=== PATIENT | male | born 1960 | race Caucasian/White ===

== ENCOUNTER 2019-04-03 16:59 | Emergency (ER) | payer MEDICARE, OTHER ==
[~2019-04-03] VITALS: Ht 170.2 cm; Wt 81.6 kg
--- NOTE | 2019-04-03 16:52 | NUR ---
ED Nurse Note: BIB by JESUS from [facility] d/t seizure x2 minutes witnessed by employees. Patient is now aaox4, verbally responsive. Placed in dental laboratory worker. Safety and seizure precautions in place.
--- NOTE | 2019-04-03 16:59 | NUR ---
ED Nurse Note: Noted right hand in cast. Pt states he fractured his right arm at the skilled nursing.
--- NOTE | 2019-04-03 17:10 | Emergency Room Report ---
History of Present Illness General Chief Complaint: Seizure Source: Patient, EMS Present Illness HPI 58-year-old male history of seizures presents with seizure prior to arrival, patient does not remember what medications he supposed to take, patient states he is provided with the medication he had a seizure prior to arrival lasting less than a minute, he was confused he could not remember the incident, aggravated by not taking medications alleviated by taking medication severity is severe, characterization is tonic-clonic whole body. Patient is back to baseline he feels completely normal denies any chest pain shortness of breath no abdominal pain. Allergies: Coded Allergies: DIVALPROEX SODIUM (Verified Allergy, Unknown, 04/03/19) HALOPERIDOL (Verified Allergy, Unknown, 04/03/19) Uncoded Allergies: PENICILLIN (Allergy, Unknown, 04/03/19) Patient History Past Medical History: see triage record Reviewed Nursing Documentation: PMH: Agreed; PSxH: Agreed Review of Systems All Other Systems: negative except mentioned in HPI Physical Exam Vital Signs Date Time Temp Pulse Resp B/P (MAP) Pulse Ox O2 Delivery O2 Flow Rate FiO2 04/03/19 16:50 98.6 110 18 134/96 (109) 98 Room Air Sp02 EP Interpretation: reviewed, normal General Appearance: well appearing, no apparent distress, alert Head: normocephalic, atraumatic Eyes: bilateral eye PERRL, bilateral eye EOMI ENT: uvula midline, moist mucus membranes Neck: supple, thyroid normal, supple/symm/no masses Respiratory: lungs clear, no respiratory distress, no retraction, no accessory muscle use Cardiovascular #1: normal peripheral pulses, regular rate, rhythm, no edema, no gallop, no murmur Gastrointestinal: non tender, soft, no guarding, no rebound Musculoskeletal: normal inspection Neurologic: alert, oriented x3 Psychiatric: mood/affect normal Skin: no rash, warm/dry Medical Decision Making Diagnostic Impression: Primary Impression: Seizure disorder ER Course 58-year-old male history of seizure disorder, he has been off his medications he cannot remember what seizure medications he supposed to take he denies any chest pain shortness of breath, labs show changes in electrolytes his white blood cell count is elevated most likely secondary to acute stress reaction, doubt infection, CT brain negative, no masses, low suspicion for intracranial hemorrhage, patient is back to baseline, patient was given some Ativan and loaded with Keppra will provide patient with Keppra as an outpatient, patient was found to have marijuana on drug urine screen, which may have exacerbated his epilepsy. Will start patient on Keppra as an outpatient for his epilepsy. Laboratory Tests Test 04/03/19 17:11 04/03/19 17:13 White Blood Count 13.7 K/UL (4.8-10.8) H Red Blood Count 4.63 M/UL (4.70-6.10) L Hemoglobin 14.8 G/DL (14.2-18.0) Hematocrit 41.5 % (42.0-52.0) L Mean Corpuscular Volume 90 FL (80-99) Mean Corpuscular Hemoglobin 32.0 PG (27.0-31.0) H Mean Corpuscular Hemoglobin Concent 35.7 G/DL (32.0-36.0) Red Cell Distribution Width 10.8 % (11.6-14.8) L Platelet Count 302 K/UL (150-450) Mean Platelet Volume 4.8 FL (6.5-10.1) L Neutrophils (%) (Auto) 67.0 % (45.0-75.0) Lymphocytes (%) (Auto) 21.7 % (20.0-45.0) Monocytes (%) (Auto) 6.7 % (1.0-10.0) Eosinophils (%) (Auto) 3.2 % (0.0-3.0) H Basophils (%) (Auto) 1.3 % (0.0-2.0) Sodium Level 135 MMOL/L (136-145) L Potassium Level 4.1 MMOL/L (3.5-5.1) Chloride Level 100 MMOL/L (98-107) Carbon Dioxide Level 28 MMOL/L (21-32) Anion Gap 7 mmol/L (5-15) Blood Urea Nitrogen 16 mg/dL (7-18) Creatinine 1.3 MG/DL (0.55-1.30) Estimate Glomerular Filtration Rate 56.9 mL/min (>60) Glucose Level 112 MG/DL (74-106) H Calcium Level 8.8 MG/DL (8.5-10.1) Total Bilirubin 0.2 MG/DL (0.2-1.0) Aspartate Amino Transferase (AST) 28 U/L (15-37) Alanine Aminotransferase (ALT) 28 U/L (12-78) Alkaline Phosphatase 104 U/L (46-116) Troponin I 0.000 ng/mL (0.000-0.056) Total Protein 6.8 G/DL (6.4-8.2) Albumin 3.3 G/DL (3.4-5.0) L Globulin 3.5 g/dL Albumin/Globulin Ratio 0.9 (1.0-2.7) L Salicylates Level 3.1 ug/mL (2.8-20) Acetaminophen Level < 2 MCG/ML (10-30) L Valproic Acid Level < 3 MCG/ML (50-100) L Carbamazepine (Tegretol) Level < 0.5 ug/mL (4.0-12.0) L Phenobarbital Level < 1.0 ug/mL (15-40) L Serum Alcohol < 3 mg/dL Urine Color Pale yellow Urine Appearance Clear Urine pH 6.5 (4.5-8.0) Urine Specific [place] 1.005 (1.005-1.035) Urine Protein Negative (NEGATIVE) Urine Glucose (UA) Negative (NEGATIVE) Urine Ketones Negative (NEGATIVE) Urine Blood Negative (NEGATIVE) Urine Nitrite Negative (NEGATIVE) Urine Bilirubin Negative (NEGATIVE) Urine Urobilinogen Normal MG/DL (0.0-1.0) Urine Leukocyte Esterase Negative (NEGATIVE) Urine Opiates Screen Negative (NEGATIVE) Urine Barbiturates Screen Negative (NEGATIVE) Phencyclidine (PCP) Screen Negative (NEGATIVE) Urine Amphetamines Screen Negative (NEGATIVE) Urine Benzodiazepines Screen Negative (NEGATIVE) Urine Cocaine Screen Negative (NEGATIVE) Urine Marijuana (THC) Screen Positive (NEGATIVE) H EKG Diagnostic Results EKG Time: 16:57 EP Interpretation: NSR rate 81, QTc 453, no acute ST elevation normal axis Rhythm Strip Diag. Results Rhythm Strip Time: 19:17 EP Interpretation: yes Rate: 85 Rhythm: NSR, no PVC's, no ectopy Chest X-Ray Diagnostic Results Chest X-Ray Diagnostic Results : Chest X-Ray Ordered: Yes # of Views/Limited/Complete: 1 View Indication: Other - Seizure EP Interpretation: Yes Interpretation: no consolidation, no effusion, no pneumothorax, no acute cardiopulmonary disease Impression: No acute disease Electronically Signed by: Gallo Villar MD CT/MRI/US Diagnostic Results CT/MRI/US Diagnostic Results : Impression EXAM: CT Head Without Intravenous Contrast CLINICAL HISTORY: SZ TECHNIQUE: Axial computed tomography images of the head/brain without intravenous contrast. CTDI is 70.38 mGy and DLP is 1403 mGy-cm. One or more of the following dose reduction techniques were used: automated exposure control, adjustment of the mA and/or kV according to patient size, use of iterative reconstruction technique. COMPARISON: No relevant prior studies available. FINDINGS: Brain: No hemorrhage. No edema. Ventricles: No ventriculomegaly. Bones/joints: No acute fracture. Soft tissues: Unremarkable. Sinuses: No acute sinusitis. Mastoid air cells: No mastoid effusion. IMPRESSION: No acute intracranial process. Last Vital Signs Date Time Temp Pulse Resp B/P (MAP) Pulse Ox O2 Delivery O2 Flow Rate FiO2 04/03/19 16:50 98.6 110 18 134/96 (109) 98 Room Air Disposition: XFER SNF Condition: Stable Scripts Levetiracetam (KEPPRA) 500 Mg Tablet 500 MG ORAL EVERY 12 HOURS, #60 TAB 0 Refills Prov: Gallo Villar MD 04/03/19 Referrals: [facility] Patient Instructions: Seizure, Adult, [id number] Additional Instructions: The patient was provided with discharge instructions, notified to follow-up with a primary care doctor and or specialist in the next 24-48 hours, and to return to the ED if they have worsening of their symptoms. Please note that this report is being documented using DRAGON technology. This can lead to erroneous entry secondary to incorrect interpretation by the dictating instrument. Gallo Villar MD Apr 03, 2019 17:10
[2019-04-03 17:16] VITALS: BP 113/63
[2019-04-03 17:27] LABS: BASOPHILS % (AUTO) 1.3 % (0.0-2.0); EOSINOPHILS % (AUTO) 3.2 % (0.0-3.0); HEMATOCRIT 41.5 % (42.0-52.0); HEMOGLOBIN 14.8 G/DL (14.2-18.0); LYMPHOCYTES % (AUTO) 21.7 % (20.0-45.0); MEAN CORPUSCULAR VOLUME 90 FL (80-99); MONOCYTES % (AUTO) 6.7 % (1.0-10.0); PLATELET COUNT 302 K/UL (150-450); RED BLOOD COUNT 4.63 M/UL (4.70-6.10); RED CELL DISTRIBUTION WIDTH 10.8 % (11.6-14.8); WHITE BLOOD COUNT 13.7 K/UL (4.8-10.8)
[2019-04-03 17:45] LABS: ANION GAP 7 mmol/L (5-15); BLOOD UREA NITROGEN 16 mg/dL (7-18); CALCIUM 8.8 MG/DL (8.5-10.1); CARBON DIOXIDE 28 MMOL/L (21-32); CHLORIDE 100 MMOL/L (98-107); CREATININE 1.3 MG/DL (0.55-1.30); POTASSIUM 4.1 MMOL/L (3.5-5.1); SODIUM 135 MMOL/L (136-145)
[2019-04-03 17:51] LABS: ALANINE AMINOTRANSFERASE 28 U/L (12-78); ALBUMIN 3.3 G/DL (3.4-5.0); ALBUMIN/GLOBULIN RATIO 0.9 (1.0-2.7); ALKALINE PHOSPHATASE 104 U/L (46-116); ASPARTATE AMINO TRANSFERASE 28 U/L (15-37); BILIRUBIN,TOTAL 0.2 MG/DL (0.2-1.0)
[2019-04-03 18:00] LABS: APPEARANCE,URINE CLEAR; BILIRUBIN, URINE NEGATIVE (NEGATIVE); COLOR,URINE PALE YELLOW; GLUCOSE, URINE (UA) NEGATIVE (NEGATIVE); KETONES,URINE NEGATIVE (NEGATIVE); LEUKOCYTE ESTERASE ,URINE NEGATIVE (NEGATIVE); NITRITE,URINE NEGATIVE (NEGATIVE); PH,URINE 6.5 (4.5-8.0); PROTEIN,URINE NEGATIVE (NEGATIVE); UROBILINOGEN,URINE NORMAL MG/DL (0.0-1.0)
--- NOTE | 2019-04-03 18:00 | NUR ---
ED Nurse Note: Spoke with Beverly at [facility], regarding med list to be faxed.
--- NOTE | 2019-04-03 18:01 | NUR ---
ED Nurse Note: Pt was taken down for CT of the head in stable condition
--- NOTE | 2019-04-03 18:14 | NUR ---
ED Nurse Note: Pt back from CT in stable condition
[2019-04-03] MEDS ORDERED: levETIRAcetam 1,000mg/NS100ml 100 ML IVPB ONE (18:30)
[2019-04-03] MEDS ORDERED: LORazepam Inj 2mg/ml 1ml IV ONE (18:30)
--- NOTE | 2019-04-03 18:31 | NUR ---
ED Nurse Note: spoke with Zunilda nurse, she reports that pt has hx of seizure but he is not on any medication.
[2019-04-03] MEDS ORDERED: BENZTROPINE ME0.5 MG PO (18:33)
[2019-04-03] MEDS ORDERED: CRANBERRY450 M5 PO (18:33)
[2019-04-03 18:45] VITALS: BP 131/60
[2019-04-03] MEDS ORDERED: KEPPRA500 M4 ORAL (19:19)
--- NOTE | 2019-04-03 20:43 | NUR ---
ED Nurse Note: CALLED [facility] TO NOTIFY PT TRANSFERRING BACK TO THE FACILITY WITH DC INSTRUCTION AND PRESCRIPTION. Addendum: 04/03/19 at 2123 by JACOB ED Nurse Note: CALLED [facility] and spoke with Ana TO NOTIFY PT TRANSFERRING BACK TO THE FACILITY WITH DC INSTRUCTION AND PRESCRIPTION.
--- NOTE | 2019-04-03 21:23 | NUR ---
ED Nurse Note: ambulance at the bedside for xfr back to facility. report given to EMS staf,, all belongings endorsed to ems. vss. iv d/c and id band removed, summary of care provided w/ prescription.
[2019-04-03 21:26] VITALS: BP 115/64
--- NOTE | 2019-04-05 08:21 | Diagnostic Imaging Report ---
EXAM: CT Head Without Intravenous Contrast CLINICAL HISTORY: SZ TECHNIQUE: Axial computed tomography images of the head/brain without intravenous contrast. CTDI is 70.38 mGy and DLP is 1403 mGy-cm. One or more of the following dose reduction techniques were used: automated exposure control, adjustment of the mA and/or kV according to patient size, use of iterative reconstruction technique. COMPARISON: No relevant prior studies available. FINDINGS: Brain: No hemorrhage. No edema. Ventricles: No ventriculomegaly. Bones/joints: No acute fracture. Soft tissues: Unremarkable. Sinuses: No acute sinusitis. Mastoid air cells: No mastoid effusion. IMPRESSION: No acute intracranial process.
--- NOTE | 2019-04-05 08:25 | Diagnostic Imaging Report ---
EXAM: XR Chest, 1 View CLINICAL HISTORY: pain TECHNIQUE: Frontal view of the chest. COMPARISON: No relevant prior studies available. FINDINGS: Lungs: No consolidation. Pleural space: Unremarkable. No pneumothorax. Heart: Unremarkable. No cardiomegaly. Mediastinum: Unremarkable. Bones/joints: No acute fracture. IMPRESSION: No acute cardiopulmonary disease.
== END 2019-04-03 21:32 ==
LOC: EDBD 16:59 → EMR 19:31
DX: G40.909 Epilepsy, unspecified, not intractable, without status epilepticus (principal); Z88.0 Allergy status to penicillin; Z88.8 Allergy status to other drugs, medicaments and biological substances
CPT/HCPCS: 36415; 70450; 71045; 80053; 80156; 80164; 80184; 80307; 81003; 82962; 84484; 85025; 93005; 96374; 99284; G0480; J1953; 80329

== ENCOUNTER 2019-06-17 18:21 | Inpatient (IN) | payer MEDICARE, OTHER ==
[~2019-06-17] VITALS: Ht 170.2 cm; Wt 76.3 kg
[~2019-06-17 18:21] MED LIST: BENZTROPINE ME0.5 MG PO; CRANBERRY450 M5 PO; KEPPRA500 M4 ORAL
--- NOTE | 2019-06-17 18:40 | Emergency Room Report ---
History of Present Illness General Chief Complaint: Upper Extremity Injury Source: Patient, Medical Record Present Illness HPI Disclaimer: Please note that this report is being documented using DRAGON technology. This can lead to erroneous entry secondary to incorrect interpretation by the dictating instrument. HPI: 58-year-old male with a history of COPD, hypertension, PTSD presents from his assisted living facility for evaluation of left hand pain and swelling. The patient states he punched a wall out of anger 2 days ago. He is right-hand dominant but punched with his left hand. Noted a abrasion between the third and fourth knuckles which stop bleeding quickly. Over the next 2 days he noted progressive swelling over the dorsum of the hand but denies any restriction in range of motion of the digits. Denies any numbness or tingling. Denies pain unless palpated. Denies significant wrist injury or pain. No other injuries reported. Otherwise in his usual state of health. PMH: Hypertension, COPD, PTSD PSH: Chart reviewed Allergies: Multiple listed including clonazepam, erythromycin Social Hx: Smoker Allergies: Coded Allergies: Little (Verified Allergy, Unknown, 06/17/19) CLONAZEPAM (Verified Allergy, Unknown, 06/17/19) DIVALPROEX SODIUM (Verified Allergy, Unknown, 04/03/19) ERYTHROMYCIN BASE (Verified Allergy, Unknown, 06/17/19) FISH CONTAINING PRODUCTS (Verified Allergy, Unknown, 06/17/19) HALOPERIDOL (Verified Allergy, Unknown, 04/03/19) PEANUT (Verified Allergy, Unknown, 06/17/19) PENICILLINS (Verified Allergy, Unknown, 06/17/19) RISPERIDONE (Verified Allergy, Unknown, 06/17/19) Nursing Documentation-PMH Past Medical History: No History, Except For Hx Seizures: Yes Review of Systems All Other Systems: negative except mentioned in HPI Physical Exam Vital Signs Date Time Temp Pulse Resp B/P (MAP) Pulse Ox O2 Delivery O2 Flow Rate FiO2 06/17/19 18:24 98.1 82 22 134/82 (99) 100 Room Air General: Awake and alert, no acute distress HEENT: NC/AT. EOMI. Cardiovascular: RRR. S1 and S2 normal. No murmur appreciated Resp: Normal work of breathing. No cough, wheezing or crackles appreciated Abdomen: Abdomen is soft, nondistended. Nontender Skin: Abrasion between the third and fourth knuckle on the left hand. Moderate edema and erythema. No purulent drainage. No bleeding. MSK: Normal tone and bulk. Moving all extremities. Tenderness palpation over the dorsum of the left hand over the third, fourth and fifth metacarpals. No obvious deformity but there is moderate edema and erythema. Able to flex and extend the digits of the left hand. No tenderness in the anatomic snuffbox. Neuro: Awake and alert. Mentating appropriately. Medical Decision Making Diagnostic Impression: Primary Impression: Cellulitis ER Course 58-year-old male presents for evaluation of left hand pain and swelling after punching a wall 2 days ago. Differential includes but is not limited to fracture, cellulitis, deep space infection, contusion. Will obtain x-rays of the hand and wrist as well as labs with inflammatory markers and blood cultures for possible infection. Laboratory Tests Test 06/17/19 18:45 White Blood Count 9.8 K/UL (4.8-10.8) Red Blood Count 4.78 M/UL (4.70-6.10) Hemoglobin 15.3 G/DL (14.2-18.0) Hematocrit 42.2 % (42.0-52.0) Mean Corpuscular Volume 88 FL (80-99) Mean Corpuscular Hemoglobin 31.9 PG (27.0-31.0) H Mean Corpuscular Hemoglobin Concent 36.1 G/DL (32.0-36.0) H Red Cell Distribution Width 10.4 % (11.6-14.8) L Platelet Count 376 K/UL (150-450) Mean Platelet Volume 4.4 FL (6.5-10.1) L Neutrophils (%) (Auto) 68.9 % (45.0-75.0) Lymphocytes (%) (Auto) 20.3 % (20.0-45.0) Monocytes (%) (Auto) 6.2 % (1.0-10.0) Eosinophils (%) (Auto) 3.5 % (0.0-3.0) H Basophils (%) (Auto) 1.1 % (0.0-2.0) Erythrocyte Sedimentation Rate 32 MM/HR (0-20) H Urine Color Pale yellow Urine Appearance Clear Urine pH 8 (4.5-8.0) Urine Specific [place] 1.015 (1.005-1.035) Urine Protein Negative (NEGATIVE) Urine Glucose (UA) Negative (NEGATIVE) Urine Ketones Negative (NEGATIVE) Urine Blood Negative (NEGATIVE) Urine Nitrite Negative (NEGATIVE) Urine Bilirubin Negative (NEGATIVE) Urine Urobilinogen Normal MG/DL (0.0-1.0) Urine Leukocyte Esterase Negative (NEGATIVE) Sodium Level 135 MMOL/L (136-145) L Potassium Level 4.5 MMOL/L (3.5-5.1) Chloride Level 96 MMOL/L (98-107) L Carbon Dioxide Level 28 MMOL/L (21-32) Anion Gap 11 mmol/L (5-15) Blood Urea Nitrogen 11 mg/dL (7-18) Creatinine 0.8 MG/DL (0.55-1.30) Estimate Glomerular Filtration Rate > 60 mL/min (>60) Glucose Level 84 MG/DL (74-106) Calcium Level 9.5 MG/DL (8.5-10.1) Total Bilirubin 0.2 MG/DL (0.2-1.0) Aspartate Amino Transferase (AST) 26 U/L (15-37) Alanine Aminotransferase (ALT) 37 U/L (12-78) Alkaline Phosphatase 109 U/L (46-116) C-Reactive Protein, Quantitative 3.5 mg/dL (0.00-0.90) H Total Protein 7.3 G/DL (6.4-8.2) Albumin 3.8 G/DL (3.4-5.0) Globulin 3.5 g/dL Albumin/Globulin Ratio 1.1 (1.0-2.7) Other X-Ray Diagnostic Results Other X-Ray Diagnostic Results #1: X-Ray ordered: Left hand # of Views/Limited Vs Complete: Complete Indication: Swelling EP Interpretation: Yes Interpretation: no dislocation, no fractures, other - Soft tissue swelling without gas Impression: Other - Soft tissue swelling. No subcutaneous gas Electronically Signed by: Electronically signed by Dr. Nato Amaral Other X-Ray Diagnostic Results #2: X-Ray ordered: Left wrist # of Views/Limited Vs Complete: Complete Indication: Swelling EP Interpretation: Yes Interpretation: no dislocation, no soft tissue swelling, no fractures Impression: No acute disease Electronically Signed by: Electronically signed by Dr. Nato Amaral Last Vital Signs Date Time Temp Pulse Resp B/P (MAP) Pulse Ox O2 Delivery O2 Flow Rate FiO2 10/24/19 18:24 98.1 82 22 134/82 (99) 100 Room Air Reevaluation Impression No evidence of fracture on x-rays. The patient likely is a cellulitis from the skin abrasion sustained while punching the wall. He was treated with antibiotics. He will be admitted to the surgical floor for continued IV antibiotics. Admission labs have been ordered and returned largely within normal limits aside from elevations in the inflammatory markers. No significant white count. Admitted in stable condition. Disposition: ADMITTED INPATIENT Condition: Serious Nato Amaral MD Jun 17, 2019 18:40
--- NOTE | 2019-06-17 18:45 | NUR ---
ED Nurse Note: Brought by paramedics from [facility] due to swelling on left hand for 1 day. per SNF staff, pt punched wall about 1 week ago. Pt aox4, no acute distress. swelling and redness noted on left hand.
--- NOTE | 2019-06-17 18:47 | NUR ---
ED Nurse Note: xray at bedside. blood collected and sent to lab
[2019-06-17 18:48] VITALS: BP 134/82
--- NOTE | 2019-06-17 19:18 | NUR ---
HAND-OFF: Report given to VILMA Buckner.
--- NOTE | 2019-06-17 19:25 | NUR ---
ED Nurse Note: Recieved repor to resume care, pt standing in llway, awake, alert and oriented x 4, pt here fo left hand swelling s/p hitting a wall 1 week ago, pt denies pain, no cp, no sob or labored beathing, has patent IV site in right ac area, intact and patent, will resume care as ordered and continue to closely monitor.
[2019-06-17 19:41] LABS: ANION GAP 11 mmol/L (5-15); BLOOD UREA NITROGEN 11 mg/dL (7-18); CALCIUM 9.5 MG/DL (8.5-10.1); CARBON DIOXIDE 28 MMOL/L (21-32); CHLORIDE 96 MMOL/L (98-107); CREATININE 0.8 MG/DL (0.55-1.30); POTASSIUM 4.5 MMOL/L (3.5-5.1); SODIUM 135 MMOL/L (136-145)
[2019-06-17 19:42] LABS: APPEARANCE,URINE CLEAR; BASOPHILS % (AUTO) 1.1 % (0.0-2.0); BILIRUBIN, URINE NEGATIVE (NEGATIVE); COLOR,URINE PALE YELLOW; EOSINOPHILS % (AUTO) 3.5 % (0.0-3.0); GLUCOSE, URINE (UA) NEGATIVE (NEGATIVE); HEMATOCRIT 42.2 % (42.0-52.0); HEMOGLOBIN 15.3 G/DL (14.2-18.0); KETONES,URINE NEGATIVE (NEGATIVE); LEUKOCYTE ESTERASE ,URINE NEGATIVE (NEGATIVE); LYMPHOCYTES % (AUTO) 20.3 % (20.0-45.0); MEAN CORPUSCULAR VOLUME 88 FL (80-99); MONOCYTES % (AUTO) 6.2 % (1.0-10.0); NEUTROPHILS % (AUTO) 68.9 % (45.0-75.0); NITRITE,URINE NEGATIVE (NEGATIVE); PH,URINE 8 (4.5-8.0); PLATELET COUNT 376 K/UL (150-450); PROTEIN,URINE NEGATIVE (NEGATIVE); RED BLOOD COUNT 4.78 M/UL (4.70-6.10); RED CELL DISTRIBUTION WIDTH 10.4 % (11.6-14.8); UROBILINOGEN,URINE NORMAL MG/DL (0.0-1.0); WHITE BLOOD COUNT 9.8 K/UL (4.8-10.8)
[2019-06-17 19:46] LABS: ALANINE AMINOTRANSFERASE 37 U/L (12-78); ALBUMIN 3.8 G/DL (3.4-5.0); ALBUMIN/GLOBULIN RATIO 1.1 (1.0-2.7); ALKALINE PHOSPHATASE 109 U/L (46-116); ASPARTATE AMINO TRANSFERASE 26 U/L (15-37); BILIRUBIN,TOTAL 0.2 MG/DL (0.2-1.0)
[2019-06-17] MEDS ORDERED: cefTRIAXone 1 GM in NS 55 ML IVPB ONE (20:00)
--- NOTE | 2019-06-17 21:15 | NUR ---
ED Nurse Note: Pt completed IV anibiotic, oleraed well, no s/s of adverse reaction noted, IV site intact and patent, pt given meal tray to eat, ate all, denies pain or any distress, pt has order for hospital admission, will continue to monitor and prepare for admit.
--- NOTE | 2019-06-17 21:57 | NUR ---
ED Nurse Note: REPORT GIVEN TO VILMA STODDARD. Addendum: 06/18/19 at 0348 by JACOB VILMA Manzo
[2019-06-17 22:00] VITALS: BP 134/80
--- NOTE | 2019-06-17 22:00 | NUR ---
NURSE NOTES: Pt admitted from ER with Dx of left hand cellulitis under Dr. Olmos in stable condition.Report received from VILMA Biswas. Americo snyder.Pt is awake,alert, verbal and ambulatory. No acute distress noted. Left hand has some inflammation, redness and bruising. Left hand X-ray was taken in ER. Pt oriented to the unit. Pt has belongings by bedside, pt refused to send valuables for safekeeping, pt verified belongings sheet and signed. Seizure precaution in place. Fall precaution in place.Bed locked low in position, side rails up , padded.Bed alarm on. Call light within reach. Dr. Olmos Will be called for admitting orders. Pt will be monitored.
[2019-06-17] MEDS ORDERED: FOLIC ACID1 M1 PO (22:10)
[2019-06-17] MEDS ORDERED: PHENYTOIN SODI100 MG ORAL (22:10)
[2019-06-17] MEDS ORDERED: PROTONIX20 MG ORAL (22:10)
[2019-06-17] MEDS ORDERED: NITRO0.4 SL ×2 (22:10→23:24)
[2019-06-17] MEDS ORDERED: OXCARBAZEPINE300 MG PO (22:10)
[2019-06-17] MEDS ORDERED: NEURONTIN300 MG ORAL (22:10)
[2019-06-17] MEDS ORDERED: IPRATROPIU0.2 MG/1 M HHN (22:10)
--- NOTE | 2019-06-17 22:50 | NUR ---
NURSE NOTES: Dr. Olmos called for admitting orders. Message left , awaiting call back.
--- NOTE | 2019-06-17 23:00 | NUR ---
NURSE NOTES: Dr. Olmos called back and ordered to resume all SNF orders.
[2019-06-17] MEDS ORDERED: DUONEB 0.5-3(2.53 ML HHN ×2 (23:24→23:34)
[2019-06-17] MEDS ORDERED: Albuterol/Ipratropium 3ml neb HHN PRN (23:45)
[2019-06-18] VITALS (7 sets, daily range): BP systolic 115–145; BP diastolic 67–91
--- NOTE | 2019-06-18 01:27 | NUR ---
NURSE NOTES: Pt is in bed, asleep. No acute distress noted. Vitas stable.
--- NOTE | 2019-06-18 07:20 | NUR ---
HAND-OFF: Report given to VILMA Saunders.Endorsed to place the SCDs on patient.
[2019-06-18] MEDS ORDERED: Milk of Magnesia 30ml Ud ORAL PRN (07:30)
[2019-06-18 07:41] LABS: BASOPHILS % (AUTO) 1.1 % (0.0-2.0); EOSINOPHILS % (AUTO) 5.9 % (0.0-3.0); HEMATOCRIT 46.3 % (42.0-52.0); HEMOGLOBIN 16.2 G/DL (14.2-18.0); LYMPHOCYTES % (AUTO) 23.7 % (20.0-45.0); MEAN CORPUSCULAR VOLUME 90 FL (80-99); MONOCYTES % (AUTO) 8.6 % (1.0-10.0); NEUTROPHILS % (AUTO) 60.8 % (45.0-75.0); PLATELET COUNT 388 K/UL (150-450); RED BLOOD COUNT 5.14 M/UL (4.70-6.10); RED CELL DISTRIBUTION WIDTH 10.9 % (11.6-14.8); WHITE BLOOD COUNT 9.1 K/UL (4.8-10.8)
[2019-06-18 08:08] LABS: ALANINE AMINOTRANSFERASE 35 U/L (12-78); ALBUMIN 3.6 G/DL (3.4-5.0); ALBUMIN/GLOBULIN RATIO 0.9 (1.0-2.7); ALKALINE PHOSPHATASE 110 U/L (46-116); ANION GAP 9 mmol/L (5-15); ASPARTATE AMINO TRANSFERASE 25 U/L (15-37); BILIRUBIN,TOTAL 0.3 MG/DL (0.2-1.0); BLOOD UREA NITROGEN 13 mg/dL (7-18); CALCIUM 9.2 MG/DL (8.5-10.1); CARBON DIOXIDE 26 MMOL/L (21-32); CHLORIDE 96 MMOL/L (98-107); CREATININE 0.8 MG/DL (0.55-1.30); POTASSIUM 3.8 MMOL/L (3.5-5.1); SODIUM 131 MMOL/L (136-145)
--- NOTE | 2019-06-18 08:19 | NUR ---
NURSE NOTES: pt awake, a/O x 4, calm. denies pain. VS stable. tolerating diet well. Left hand with dry scab, redness , warm to touch, no tinglings, no numbness. bed alarm on, call light within reach. fall precaution maintained.
[2019-06-18] MEDS: Phenytoin 100mg cap ORAL SCH ×2 (08:23→17:28)
[2019-06-18] MEDS: OXcarbazepine 150mg tab ORAL SCH ×2 (08:24→17:28)
--- NOTE | 2019-06-18 09:54 | Consultation ---
History of Present Illness General Date patient seen: Jun 18, 2019 Present Illness Allergies: Coded Allergies: Little (Verified Allergy, Unknown, 06/17/19) CLONAZEPAM (Verified Allergy, Unknown, 06/17/19) DIVALPROEX SODIUM (Verified Allergy, Unknown, 04/03/19) ERYTHROMYCIN BASE (Verified Allergy, Unknown, 06/17/19) FISH CONTAINING PRODUCTS (Verified Allergy, Unknown, 06/17/19) HALOPERIDOL (Verified Allergy, Unknown, 04/03/19) PEANUT (Verified Allergy, Unknown, 06/17/19) PENICILLINS (Verified Allergy, Unknown, 06/17/19) RISPERIDONE (Verified Allergy, Unknown, 06/17/19) Medication History Scheduled Cranberry Fruit (Cranberry), 900 MG PO BID, (Reported) Folic Acid (Folic Acid), 1 MG PO DAILY, (Reported) Gabapentin (Neurontin), 600 MG ORAL THREE TIMES A DAY, (Reported) Oxcarbazepine (Oxcarbazepine), 300 MG PO BID, (Reported) Pantoprazole Sodium (Protonix), 40 MG ORAL DAILY, (Reported) Phenytoin Sodium Extended* (Phenytoin Sodium Extended*), 200 MG ORAL TWICE A DAY , (Reported) Scheduled PRN Ipratropium/Albuterol Sulfate (DuoNeb 0.5-3(2.5)mg/3ml), 3 ML HHN Q4HR PRN for Shortness of Breath, (Reported) Nitroglycerin 0.4MG table* (Nitroglycerin*), 0.4 MG SL .Q5MIN X 3 DOSES PRN for CHEST PAIN, (Reported) Discontinued Medications Benztropine Mesylate* (Cogentin*), 2 MG PO BID, (Reported) Discontinued Reason: Pt stopped taking med Ipratropium [place] 0.5MG/2.5ML (Ipratropium [place] 0.5MG/2.5ML), 3 ML HHN Q4H PRN for Shortness of Breath, (Reported) Discontinued Reason: Pt stopped taking med Levetiracetam (Keppra), 500 MG ORAL EVERY 12 HOURS Discontinued Reason: Pt stopped taking med Patient History Healthcare decision maker Resuscitation status Full Code Advanced Directive on File Physical Exam Last 24 Hour Vital Signs Date Time Temp Pulse Resp B/P (MAP) Pulse Ox O2 Delivery O2 Flow Rate FiO2 06/18/19 08:26 97.8 84 18 115/77 (90) 95 06/18/19 06:40 73 18 97 Room Air 21 06/18/19 04:00 97.8 78 18 131/71 (91) 97 06/18/19 00:00 98.7 72 18 126/67 (86) 95 06/17/19 23:47 Room Air 06/17/19 22:00 97.8 84 20 134/80 95 Room Air 06/17/19 22:00 97.8 84 20 134/80 (98) 95 06/17/19 18:48 98.1 22 134/82 100 Room Air 06/17/19 18:24 98.1 82 22 134/82 (99) 100 Room Air Intake and Output 06/17/19 06/18/19 19:00 07:00 Intake Total 1200 ml Balance 1200 ml Intake Oral 1200 ml # Voids 2 Laboratory Tests Test 06/17/19 18:45 06/18/19 04:57 White Blood Count 9.8 K/UL (4.8-10.8) 9.1 K/UL (4.8-10.8) Red Blood Count 4.78 M/UL (4.70-6.10) 5.14 M/UL (4.70-6.10) Hemoglobin 15.3 G/DL (14.2-18.0) 16.2 G/DL (14.2-18.0) Hematocrit 42.2 % (42.0-52.0) 46.3 % (42.0-52.0) Mean Corpuscular Volume 88 FL (80-99) 90 FL (80-99) Mean Corpuscular Hemoglobin 31.9 PG (27.0-31.0) H 31.5 PG (27.0-31.0) H Mean Corpuscular Hemoglobin Concent 36.1 G/DL (32.0-36.0) H 35.0 G/DL (32.0-36.0) Red Cell Distribution Width 10.4 % (11.6-14.8) L 10.9 % (11.6-14.8) L Platelet Count 376 K/UL (150-450) 388 K/UL (150-450) Mean Platelet Volume 4.4 FL (6.5-10.1) L 4.5 FL (6.5-10.1) L Neutrophils (%) (Auto) 68.9 % (45.0-75.0) 60.8 % (45.0-75.0) Lymphocytes (%) (Auto) 20.3 % (20.0-45.0) 23.7 % (20.0-45.0) Monocytes (%) (Auto) 6.2 % (1.0-10.0) 8.6 % (1.0-10.0) Eosinophils (%) (Auto) 3.5 % (0.0-3.0) H 5.9 % (0.0-3.0) H Basophils (%) (Auto) 1.1 % (0.0-2.0) 1.1 % (0.0-2.0) Erythrocyte Sedimentation Rate 32 MM/HR (0-20) H Urine Color Pale yellow Urine Appearance Clear Urine pH 8 (4.5-8.0) Urine Specific [place] 1.015 (1.005-1.035) Urine Protein Negative (NEGATIVE) Urine Glucose (UA) Negative (NEGATIVE) Urine Ketones Negative (NEGATIVE) Urine Blood Negative (NEGATIVE) Urine Nitrite Negative (NEGATIVE) Urine Bilirubin Negative (NEGATIVE) Urine Urobilinogen Normal MG/DL (0.0-1.0) Urine Leukocyte Esterase Negative (NEGATIVE) Sodium Level 135 MMOL/L (136-145) L 131 MMOL/L (136-145) L Potassium Level 4.5 MMOL/L (3.5-5.1) 3.8 MMOL/L (3.5-5.1) Chloride Level 96 MMOL/L (98-107) L 96 MMOL/L (98-107) L Carbon Dioxide Level 28 MMOL/L (21-32) 26 MMOL/L (21-32) Anion Gap 11 mmol/L (5-15) 9 mmol/L (5-15) Blood Urea Nitrogen 11 mg/dL (7-18) 13 mg/dL (7-18) Creatinine 0.8 MG/DL (0.55-1.30) 0.8 MG/DL (0.55-1.30) Estimat Glomerular Filtration Rate > 60 mL/min (>60) > 60 mL/min (>60) Glucose Level 84 MG/DL (74-106) 83 MG/DL (74-106) Calcium Level 9.5 MG/DL (8.5-10.1) 9.2 MG/DL (8.5-10.1) Total Bilirubin 0.2 MG/DL (0.2-1.0) 0.3 MG/DL (0.2-1.0) Aspartate Amino Transf (AST/SGOT) 26 U/L (15-37) 25 U/L (15-37) Alanine Aminotransferase (ALT/SGPT) 37 U/L (12-78) 35 U/L (12-78) Alkaline Phosphatase 109 U/L (46-116) 110 U/L (46-116) C-Reactive Protein, Quantitative 3.5 mg/dL (0.00-0.90) H Total Protein 7.3 G/DL (6.4-8.2) 7.8 G/DL (6.4-8.2) Albumin 3.8 G/DL (3.4-5.0) 3.6 G/DL (3.4-5.0) Globulin 3.5 g/dL 4.2 g/dL Albumin/Globulin Ratio 1.1 (1.0-2.7) 0.9 (1.0-2.7) L Microbiology Date/Time Source Procedure Growth Status 06/18/19 00:00 Rectum Received Height (Feet): 5 Height (Inches): 7.00 Weight (Pounds): 168 Medications Current Medications Medications (Trade) Dose Ordered Sig/Scott Route PRN Reason Start Time Stop Time Status Last Admin Dose Admin Albuterol/ Ipratropium (Albuterol/ Ipratropium) 3 ml Q4HR PRN HHN Shortness of Breath 06/17/19 23:45 06/22/19 23:44 Diphenhydramine HCl (Benadryl) 25 mg Q4H PRN ORAL Itching 06/18/19 09:45 07/18/19 09:44 Folic Acid (Folate) 1 mg DAILY ORAL 06/18/19 09:00 07/18/19 08:59 06/18/19 08:24 Gabapentin (Neurontin) 600 mg THREE TIMES A DAY ORAL 06/18/19 09:00 07/18/19 08:59 06/18/19 08:24 Magnesium Hydroxide (Mom) 30 ml Q4H PRN ORAL Constipation 06/18/19 07:30 07/18/19 07:29 06/18/19 08:25 Nitroglycerin (Ntg) 0.4 mg Q5MIN X 3 DOSES PRN SL CHEST PAIN 06/17/19 23:45 07/17/19 23:44 Oxcarbazepine (Trileptal) 300 mg BID ORAL 06/18/19 09:00 07/18/19 08:59 06/18/19 08:24 Pantoprazole (Protonix) 40 mg DAILY@0630 ORAL 06/18/19 06:30 07/18/19 06:29 06/18/19 06:10 Phenytoin (Dilantin) 200 mg TWICE A DAY ORAL 06/18/19 09:00 07/18/19 08:59 06/18/19 08:23 Vancomycin HCl (Vanco rx to dose) 1 ea DAILY PRN MISC Per rx protocol 06/18/19 07:00 07/18/19 06:59 Vancomycin HCl 1 gm/Dextrose 275 ml @ 183.708 mls/hr Q12HR IVPB 06/18/19 09:00 06/23/19 08:59 Assessment/Plan Assessment/Plan: (1) Left hand pain (2) Cellulitis (3) H/O Substance abuse (4) Arthritis seen dictated Nickolas Weston Jun 18, 2019 09:54
--- NOTE | 2019-06-18 10:08 | Diagnostic Imaging Report ---
Indication: Hand pain, swelling Technique: 3 views left hand Comparison: none Findings: There is a fracture deformity of the base of the fifth metacarpal, without definite fracture line. No other evidence of acute fracture. No dislocation. There is dorsal soft tissue swelling. No radiopaque foreign body. No soft tissue gas. Impression: Fifth metacarpal fracture deformity, probably old. Correlate with clinical findings Dorsal soft tissue swelling
--- NOTE | 2019-06-18 10:42 | Diagnostic Imaging Report ---
Clinical Indication:Injury, pain, swelling Technique: 3 views of the left wrist Comparison: None Findings: There is an old appearing fracture deformity of the fifth metacarpal base. The joint spaces are preserved. No acute fractures. No dislocations. There is mild dorsal soft tissue swelling Impression: No acute bony trauma
[2019-06-18] MEDS: Vancomycin 1gm in D5W 275ml IVPB SCH ×2 (11:01→20:32)
[2019-06-18 11:32] LABS: CHOLESTEROL 233 MG/DL (< 200); HDL CHOLESTEROL 46 MG/DL (40-60); PHOSPHORUS 3.4 MG/DL (2.5-4.9); TRIGLYCERIDES 100 MG/DL (30-150)
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
--- NOTE | 2019-06-18 11:53 | Consultation ---
History of Present Illness General Date patient seen: Jun 18, 2019 Time patient seen: 11:44 Chief Complaint: Upper Extremity Injury Reason for Consultation: B/L foot pain Present Illness HPI Pt seen bedside with RN, for B/L foot pain. He states his L foot bunion hurts, and he has history of " open sores " on his feet. He states he was admitted for cellulitis of his Left hand. Allergies: Coded Allergies: Little (Verified Allergy, Unknown, 06/17/19) CLONAZEPAM (Verified Allergy, Unknown, 06/17/19) DIVALPROEX SODIUM (Verified Allergy, Unknown, 04/03/19) ERYTHROMYCIN BASE (Verified Allergy, Unknown, 06/17/19) FISH CONTAINING PRODUCTS (Verified Allergy, Unknown, 06/17/19) HALOPERIDOL (Verified Allergy, Unknown, 04/03/19) PEANUT (Verified Allergy, Unknown, 06/17/19) PENICILLINS (Verified Allergy, Unknown, 06/17/19) RISPERIDONE (Verified Allergy, Unknown, 06/17/19) Medication History Scheduled Cranberry Fruit (Cranberry), 900 MG PO BID, (Reported) Folic Acid (Folic Acid), 1 MG PO DAILY, (Reported) Gabapentin (Neurontin), 600 MG ORAL THREE TIMES A DAY, (Reported) Oxcarbazepine (Oxcarbazepine), 300 MG PO BID, (Reported) Pantoprazole Sodium (Protonix), 40 MG ORAL DAILY, (Reported) Phenytoin Sodium Extended* (Phenytoin Sodium Extended*), 200 MG ORAL TWICE A DAY , (Reported) Scheduled PRN Ipratropium/Albuterol Sulfate (DuoNeb 0.5-3(2.5)mg/3ml), 3 ML HHN Q4HR PRN for Shortness of Breath, (Reported) Nitroglycerin 0.4MG table* (Nitroglycerin*), 0.4 MG SL .Q5MIN X 3 DOSES PRN for CHEST PAIN, (Reported) Discontinued Medications Benztropine Mesylate* (Cogentin*), 2 MG PO BID, (Reported) Discontinued Reason: Pt stopped taking med Ipratropium Ashley 0.5MG/2.5ML (Ipratropium Ashley 0.5MG/2.5ML), 3 ML HHN Q4H PRN for Shortness of Breath, (Reported) Discontinued Reason: Pt stopped taking med Levetiracetam (Keppra), 500 MG ORAL EVERY 12 HOURS Discontinued Reason: Pt stopped taking med Patient History Healthcare decision maker Resuscitation status Full Code Advanced Directive on File Physical Exam Physical Exam Narrative Focused B/L L/E Exam: Derm: Hyperkeratotic skin noted plantar medial 1st MPJ. No open wounds are noted. Interdigital spaces intact. No ascending erythema or edema is noted. Vasc: +2/4 DP/PT pulses. POWER ENGINEER < 3 seconds Neuro: SILT intact to all dermatomes. MSK: B/L dorsal medial prominence is noted. Flexion deformities of digits 2-5 B /L noted. Otherwise no gross deformities are noted. Last 24 Hour Vital Signs Date Time Temp Pulse Resp B/P (MAP) Pulse Ox O2 Delivery O2 Flow Rate FiO2 06/18/19 11:02 97.8 06/18/19 09:00 Room Air 06/18/19 08:26 97.8 84 18 115/77 (90) 95 06/18/19 06:40 73 18 97 Room Air 21 06/18/19 04:00 97.8 78 18 131/71 (91) 97 06/18/19 00:00 98.7 72 18 126/67 (86) 95 06/17/19 23:47 Room Air 06/17/19 22:00 97.8 84 20 134/80 95 Room Air 06/17/19 22:00 97.8 84 20 134/80 (98) 95 06/17/19 18:48 98.1 22 134/82 100 Room Air 06/17/19 18:24 98.1 82 22 134/82 (99) 100 Room Air Intake and Output 06/17/19 06/18/19 19:00 07:00 Intake Total 1200 ml Balance 1200 ml Intake Oral 1200 ml # Voids 2 Laboratory Tests Test 06/17/19 18:45 06/18/19 04:57 06/18/19 10:35 White Blood Count 9.8 K/UL (4.8-10.8) 9.1 K/UL (4.8-10.8) Red Blood Count 4.78 M/UL (4.70-6.10) 5.14 M/UL (4.70-6.10) Hemoglobin 15.3 G/DL (14.2-18.0) 16.2 G/DL (14.2-18.0) Hematocrit 42.2 % (42.0-52.0) 46.3 % (42.0-52.0) Mean Corpuscular Volume 88 FL (80-99) 90 FL (80-99) Mean Corpuscular Hemoglobin 31.9 PG (27.0-31.0) H 31.5 PG (27.0-31.0) H Mean Corpuscular Hemoglobin Concent 36.1 G/DL (32.0-36.0) H 35.0 G/DL (32.0-36.0) Red Cell Distribution Width 10.4 % (11.6-14.8) L 10.9 % (11.6-14.8) L Platelet Count 376 K/UL (150-450) 388 K/UL (150-450) Mean Platelet Volume 4.4 FL (6.5-10.1) L 4.5 FL (6.5-10.1) L Neutrophils (%) (Auto) 68.9 % (45.0-75.0) 60.8 % (45.0-75.0) Lymphocytes (%) (Auto) 20.3 % (20.0-45.0) 23.7 % (20.0-45.0) Monocytes (%) (Auto) 6.2 % (1.0-10.0) 8.6 % (1.0-10.0) Eosinophils (%) (Auto) 3.5 % (0.0-3.0) H 5.9 % (0.0-3.0) H Basophils (%) (Auto) 1.1 % (0.0-2.0) 1.1 % (0.0-2.0) Erythrocyte Sedimentation Rate 32 MM/HR (0-20) H Urine Color Pale yellow Urine Appearance Clear Urine pH 8 (4.5-8.0) Urine Specific [place] 1.015 (1.005-1.035) Urine Protein Negative (NEGATIVE) Urine Glucose (UA) Negative (NEGATIVE) Urine Ketones Negative (NEGATIVE) Urine Blood Negative (NEGATIVE) Urine Nitrite Negative (NEGATIVE) Urine Bilirubin Negative (NEGATIVE) Urine Urobilinogen Normal MG/DL (0.0-1.0) Urine Leukocyte Esterase Negative (NEGATIVE) Sodium Level 135 MMOL/L (136-145) L 131 MMOL/L (136-145) L Potassium Level 4.5 MMOL/L (3.5-5.1) 3.8 MMOL/L (3.5-5.1) Chloride Level 96 MMOL/L (98-107) L 96 MMOL/L (98-107) L Carbon Dioxide Level 28 MMOL/L (21-32) 26 MMOL/L (21-32) Anion Gap 11 mmol/L (5-15) 9 mmol/L (5-15) Blood Urea Nitrogen 11 mg/dL (7-18) 13 mg/dL (7-18) Creatinine 0.8 MG/DL (0.55-1.30) 0.8 MG/DL (0.55-1.30) Estimat Glomerular Filtration Rate > 60 mL/min (>60) > 60 mL/min (>60) Glucose Level 84 MG/DL (74-106) 83 MG/DL (74-106) Calcium Level 9.5 MG/DL (8.5-10.1) 9.2 MG/DL (8.5-10.1) Total Bilirubin 0.2 MG/DL (0.2-1.0) 0.3 MG/DL (0.2-1.0) Aspartate Amino Transf (AST/SGOT) 26 U/L (15-37) 25 U/L (15-37) Alanine Aminotransferase (ALT/SGPT) 37 U/L (12-78) 35 U/L (12-78) Alkaline Phosphatase 109 U/L (46-116) 110 U/L (46-116) C-Reactive Protein, Quantitative 3.5 mg/dL (0.00-0.90) H Total Protein 7.3 G/DL (6.4-8.2) 7.8 G/DL (6.4-8.2) Albumin 3.8 G/DL (3.4-5.0) 3.6 G/DL (3.4-5.0) Globulin 3.5 g/dL 4.2 g/dL Albumin/Globulin Ratio 1.1 (1.0-2.7) 0.9 (1.0-2.7) L Osmolality Pending Uric Acid 3.9 MG/DL (2.6-7.2) Phosphorus Level 3.4 MG/DL (2.5-4.9) Magnesium Level 2.2 MG/DL (1.8-2.4) Triglycerides Level 100 MG/DL (30-150) Cholesterol Level 233 MG/DL (< 200) H LDL Cholesterol 174 mg/dL (<100) H HDL Cholesterol 46 MG/DL (40-60) Cholesterol/HDL Ratio 5.1 (3.3-4.4) H Thyroid Stimulating Hormone (TSH) 1.801 uiU/mL (0.358-3.740) Microbiology Date/Time Source Procedure Growth Status 06/18/19 00:00 Rectum Received Height (Feet): 5 Height (Inches): 7.00 Weight (Pounds): 168 Medications Current Medications Medications (Trade) Dose Ordered Sig/Scott Route PRN Reason Start Time Stop Time Status Last Admin Dose Admin Acetaminophen (Tylenol) 650 mg Q4H PRN ORAL Mild Pain/Temp > 100.5 06/18/19 10:00 07/18/19 09:59 06/18/19 10:32 Albuterol/ Ipratropium (Albuterol/ Ipratropium) 3 ml Q4HR PRN HHN Shortness of Breath 06/17/19 23:45 06/22/19 23:44 Cetylpyridinium Chloride (Cepacol) 1 lozg Q2H PRN HAILEY throat pain 06/18/19 10:00 07/18/19 09:59 06/18/19 10:32 Diphenhydramine HCl (Benadryl) 25 mg Q4H PRN ORAL Itching 06/18/19 09:45 07/18/19 09:44 06/18/19 10:27 Folic Acid (Folate) 1 mg DAILY ORAL 06/18/19 09:00 07/18/19 08:59 06/18/19 08:24 Gabapentin (Neurontin) 600 mg THREE TIMES A DAY ORAL 06/18/19 09:00 07/18/19 08:59 06/18/19 08:24 Magnesium Hydroxide (Mom) 30 ml Q4H PRN ORAL Constipation 06/18/19 07:30 07/18/19 07:29 06/18/19 08:25 Nitroglycerin (Ntg) 0.4 mg Q5MIN X 3 DOSES PRN SL CHEST PAIN 06/17/19 23:45 07/17/19 23:44 Oxcarbazepine (Trileptal) 300 mg BID ORAL 06/18/19 09:00 07/18/19 08:59 06/18/19 08:24 Pantoprazole (Protonix) 40 mg DAILY@0630 ORAL 06/18/19 06:30 07/18/19 06:29 06/18/19 06:10 Phenytoin (Dilantin) 200 mg TWICE A DAY ORAL 06/18/19 09:00 07/18/19 08:59 06/18/19 08:23 Vancomycin HCl (Vanco rx to dose) 1 ea DAILY PRN MISC Per rx protocol 06/18/19 07:00 07/18/19 06:59 Vancomycin HCl 1 gm/Dextrose 275 ml @ 183.708 mls/hr Q12HR IVPB 06/18/19 09:00 06/23/19 08:59 06/18/19 11:01 Assessment/Plan Assessment/Plan: A: - Left hand cellullitis. - Arthritis. - Substance Abuse - B/L Bunion deformity, P: - Pt seen and evaluated. - Discuss findings patient. - No open wounds are acute infection is noted to B/L L/E. - Advised patient he does not have any open wounds to B/L L/E. - Instructed patient bunion pain can be treated as outpt. - Will order B/L L/E XR, R/O fracture or acute infection. - At this time no acute surgical intervention is required. - Thank you for consulting podiatry. Dave Ricci DPM Jun 18, 2019 11:53
[2019-06-18] MEDS: Docusate 100mg cap ORAL SCH ×2 (12:13→17:30)
--- NOTE | 2019-06-18 14:12 | NUR ---
pt had anxiety, complaining for chest pain, notified MD, received order for EKG, left message to Dr. Gómez for Ativan, waiting for call back.
--- NOTE | 2019-06-18 16:30 | Consultation ---
DATE OF CONSULTATION: 06/18/2019 PAIN MANAGEMENT CONSULTATION CONSULTING PHYSICIAN: Mariah Morales M.D. REFERRING PHYSICIAN: Darshan Gómez M.D. [employer] COMPENSATION CLAIMS EXAMINER: Amber Coker CHIEF COMPLAINT: Left hand pain. HISTORY OF PRESENT ILLNESS: This is a 58-year-old male who is being seen on the Med/Surg floor of [facility] for initial pain management consultation. The patient was admitted under the care of Dr. Gómez due to cellulitis of the left hand, has been complaining of severe hand pain at times but is comfortable at this time. No signs of pain or distress, reports that he has a history of heroin abuse about a year ago in which he has stopped having cravings, requesting narcotic; however, I discussed the patient about narcotics at this time in terms of his cravings for opioid medication, he seems to understand. We will start him on nonnarcotic pain medication such as Tylenol and he seems to agree with the plan. PAST MEDICAL HISTORY: Hypertension, mitral valve prolapse, arthritis. PAST SURGICAL HISTORY: Kidney surgery. SOCIAL HISTORY: He has a history of heroin abuse about a year ago, history of alcohol abuse. He is a smoker of tobacco. ALLERGIES: Clonazepam, divalproex, erythromycin, haloperidol, risperidone, penicillin. MEDICATIONS: Taking cranberry, folic acid, Neurontin, Protonix, phenytoin, nitroglycerin, Cogentin, ipratropium, Keppra. REVIEW OF SYSTEMS: Denies rash, fever, chills, sweating, dizziness, drowsiness, blurred vision, sore throat, or change in weight. No shortness of breath or chest pain. No nausea, vomiting, diarrhea. No blood in stool or urine. No bowel or bladder incontinence. No dysuria. He is complaining of left hand pain. PHYSICAL EXAMINATION: GENERAL: Alert, awake, oriented. VITAL SIGNS: Blood pressure 110/77, heart rate 80, oxygen saturation 95%, respiratory rate 18, and temperature 97.8 degrees Fahrenheit. HEENT: PERRLA. NECK: Range of motion is full in all directions. No tenderness to paracervical muscles. No adenopathy. LUNGS: Clear bilaterally. HEART: S1 and S2 regular. ABDOMEN: Soft and nontender. BACK: Range of motion is full in flexion and extension. EXTREMITIES: Upper and lower extremity range of motion is full in all directions. No cyanosis. No clubbing. No edema. Sensory is intact. Reflexes are not obtainable. No adenopathy. ASSESSMENT AND PLAN: This is a 58-year-old male with left hand pain, cellulitis, history of substance abuse, arthritis. The patient will be started on Tylenol 650 mg tablet every 4 hours as needed for pain. The patient was discussed with Dr. Morales and Dr. Morales concurred. We will follow the patient. Thank you very much for the courtesy of this consultation. Mariah Morales M.D. SURESH Coker DR: Yazan JOB#: [id number] CC: MARY
--- NOTE | 2019-06-18 19:20 | NUR ---
HAND-OFF: Report given to Sridhar ESPARZA.
--- NOTE | 2019-06-18 19:43 | NUR ---
NURSE NOTES: Pt is in bed, calm. No acute distress noted. Vitas stable. Pt is writing random notes on a piece of paper. Pt is impulsive at times and has anxiety attacks sometimes. Pt is calm now. Iv fluid is running. Fall precaution in place, bed alarm on. Bed locked low in position,side rails up and call light within reach. Pt will be monitored.
[2019-06-19] VITALS: BP 139/90
--- NOTE | 2019-06-19 00:30 | Consultation ---
DATE OF CONSULTATION: 06/18/2019 CONSULTING PHYSICIAN: Nica Barnes M.D. HISTORY OF PRESENT ILLNESS: This is a 58-year-old male who resides at the nursing facility, who has a history of PTSD, hypertension, and COPD, who has been admitted to the hospital for medical stabilization. The patient has severe anxiety, flashbacks, difficulty sleeping, and poor insight. No suicidal or homicidal ideation is noted. The patient has been not taking Neurontin. Denies any suicidal or homicidal ideation. PAST PSYCHIATRIC HISTORY: 1. Anxiety disorder. 2. PTSD. PAST MEDICAL HISTORY: As above. ALLERGIES: Clonazepam, Depakote, erythromycin, Haldol, penicillin, and risperidone. SUBSTANCE ABUSE HISTORY: No known history of illicit drug use or alcohol. Urine toxicology is negative. MENTAL STATUS EXAMINATION: Alert and oriented times to self, place, and situation. Mood is anxious. Affect is constricted, congruent with mood. Thought process, linear and goal oriented. Thought content, no suicidal or homicidal ideation. ASSESSMENT: AXIS I: PTSD. Anxiety disorder. AXIS II: Deferred. AXIS III: As above. AXIS IV: Low. AXIS V: 50. PLAN: 1. Start the patient on Neurontin 600 mg three times a day. 2. Ativan as needed. 3. The patient is reluctant to be started on new medication. iNca Barnes M.D. DR: ANGELITA JOB#: [id number] CC:
--- NOTE | 2019-06-19 01:30 | History and Physical Report ---
DATE OF ADMISSION: 06/17/2019 HISTORY OF PRESENT ILLNESS: The patient is a poor historian. He comes in because of cellulitis of the left hand and dehydration. Admitted for those reasons. The patient again as mentioned is a poor historian. Admitted for IV antibiotics. Denies nausea, vomiting, or diarrhea. Does have some pain in the left hand. Denies infection. Denies shortness of breath. Denies cough. PAST MEDICAL HISTORY: Schizophrenia, seizure disorder, GERD, and schizoaffective. PAST SURGICAL HISTORY: Nose surgery, right hand surgery, kidney surgery, and both feet surgery. SOCIAL HISTORY: The patient has a history of smoking and history of drug and alcohol abuse. Comes from a [facility]. ALLERGIES: Erythromycin, penicillin, Klonopin, Depakote, fish, Haldol, peanuts, and risperidone. MEDICATIONS: Folic acid, gabapentin, oxcarbazepine, Protonix, and Dilantin. FAMILY HISTORY: Noncontributory. REVIEW OF SYSTEMS: HEENT: Denies headaches. RESPIRATORY: Denies shortness of breath. Denies cough. CARDIOVASCULAR: Denies chest pain. GASTROINTESTINAL: Denies nausea, vomiting, or diarrhea. EXTREMITIES: Reports left hand pain. CENTRAL NERVOUS SYSTEM: Denies any change in speech pattern. PHYSICAL EXAMINATION: VITAL SIGNS: Temperature is 97.8, pulse is 84, and blood pressure 115/77. HEENT: PERRLA. NECK: Supple. No lymphadenopathy. CHEST: Clear to auscultation. CARDIOVASCULAR: Regular rate and rhythm. ABDOMEN: Soft, nontender, nondistended. No organomegaly. EXTREMITIES: No edema. Moves all four extremities. NEUROLOGIC: Sensory intact to light touch. Reflexes equal on both sides. LABORATORY DATA: WBC of 9.8, hemoglobin of 15.3, and platelets 376. Sodium 135, potassium 4.5, BUN of 11, creatinine of 0.8, and glucose of 84. ASSESSMENT AND PLAN: Cellulitis of the left hand and dehydration. I have asked Dr. Alonzo Matta, Dr. Velasquez, Dr. Richards, Dr. Morales, Dr. Merritt, and Dr. Barnes to see the patient. The patient also has chest pain, complains of panic attacks, and also has poor hygiene on the feet, need to rule out infection of the foot, so for those reasons of the chest pain, panic attack, cellulitis of the left hand, and dehydration, I have consulted Dr. Alonzo Matta, Dr. Velasquez, Dr. Morales, Dr. Richards, Dr. Merritt, and Dr. Barnes. Darshan Gómez M.D. DR: NATHAN JOB#: [id number] CC:
[2019-06-19 04:00] VITALS: BP 147/84
--- NOTE | 2019-06-19 06:23 | NUR ---
NURSE NOTES: Pt is in bed,awake and verbal. No acute distress noted. New IV access on the right hand 22G.
--- NOTE | 2019-06-19 07:30 | NUR ---
HAND-OFF: Report given to Alberto Vega RN.
--- NOTE | 2019-06-19 07:47 | NUR ---
NURSE NOTES: Patient awake, alert x4; on room air, no sing of distress and shortness of breath; no sing of chest pain; IV Right-Hand 24G NS 75cc running; side rails padded for seizure percussion, bed at lowest position, breaks engaged; call light within reach; will keep monitoring.
[2019-06-19 08:00] VITALS: BP 127/67
[2019-06-19 08:21] LABS: BASOPHILS % (AUTO) 0.8 % (0.0-2.0); EOSINOPHILS % (AUTO) 5.1 % (0.0-3.0); HEMATOCRIT 45.1 % (42.0-52.0); HEMOGLOBIN 15.9 G/DL (14.2-18.0); LYMPHOCYTES % (AUTO) 14.8 % (20.0-45.0); MEAN CORPUSCULAR VOLUME 90 FL (80-99); MONOCYTES % (AUTO) 5.6 % (1.0-10.0); NEUTROPHILS % (AUTO) 73.7 % (45.0-75.0); PLATELET COUNT 339 K/UL (150-450); RED CELL DISTRIBUTION WIDTH 10.9 % (11.6-14.8); WHITE BLOOD COUNT 9.2 K/UL (4.8-10.8)
--- NOTE | 2019-06-19 09:02 | Diagnostic Imaging Report ---
EXAM: XR Right Foot Complete, 3 or More Views CLINICAL HISTORY: PAIN TECHNIQUE: Frontal, lateral and oblique views of the right foot. COMPARISON: No relevant prior studies available. FINDINGS: Bones joints: No visible displaced fracture. No dislocation. No osseous erosions. Mild degenerative narrowing at the metatarsophalangeal joints of the first and second toes. Visualized joint spaces otherwise appear unremarkable. Incidental note of small plantar calcaneal bony spur. Soft tissues: Unremarkable. No radiopaque foreign body. IMPRESSION: No acute findings.
--- NOTE | 2019-06-19 09:06 | Diagnostic Imaging Report ---
EXAM: XR Left Foot Complete, 3 or More Views CLINICAL HISTORY: PAIN TECHNIQUE: Frontal, lateral and oblique views of the left foot. COMPARISON: X-rays of the contralateral right foot obtained the same date. FINDINGS: Bones joints: No visible displaced fracture. No dislocation. No osseous erosions. Visualized joint spaces appear unremarkable. Soft tissues: Unremarkable. No radiopaque foreign body. IMPRESSION: No acute findings.
[2019-06-19] MEDS: OXcarbazepine 150mg tab ORAL SCH ×2 (09:12→17:46)
[2019-06-19] MEDS: Phenytoin 100mg cap ORAL SCH ×2 (09:12→17:46)
[2019-06-19] MEDS: Docusate 100mg cap ORAL SCH ×3 (09:12→17:45)
[2019-06-19] MEDS: Vancomycin 1gm in D5W 275ml IVPB SCH ×2 (09:13→20:52)
[2019-06-19] MEDS: LORazepam 0.5mg tab ORAL PRN (09:13)
[2019-06-19 10:06] LABS: ALBUMIN/GLOBULIN RATIO 0.8 (1.0-2.7); ALKALINE PHOSPHATASE 95 U/L (46-116); ASPARTATE AMINO TRANSFERASE 15 U/L (15-37); BILIRUBIN,TOTAL 0.3 MG/DL (0.2-1.0); BLOOD UREA NITROGEN 15 mg/dL (7-18); CREATININE 0.8 MG/DL (0.55-1.30)
[2019-06-19 10:09] LABS: ANION GAP 10 mmol/L (5-15); CARBON DIOXIDE 26 MMOL/L (21-32); CHLORIDE 101 MMOL/L (98-107); POTASSIUM 4.6 MMOL/L (3.5-5.1); SODIUM 137 MMOL/L (136-145)
[2019-06-19 10:10] LABS: ALANINE AMINOTRANSFERASE 31 U/L (12-78); ALBUMIN 3.2 G/DL (3.4-5.0); GAMMA GLUTAMYL TRANSPEPTIDASE 42 U/L (5-85); PHOSPHORUS 4.1 MG/DL (2.5-4.9)
[2019-06-19 12:00] VITALS: BP 121/63
--- NOTE | 2019-06-19 13:45 | Consultation ---
DATE OF CONSULTATION: 06/18/2019 INFECTIOUS DISEASE CONSULTATION CONSULTING PHYSICIAN: Alonzo Matta M.D. PRIMARY ATTENDING PHYSICIAN: Darshan Gómez M.D. REASON FOR CONSULTATION: Cellulitis of left hand. HISTORY OF PRESENT ILLNESS: The patient is a 58-year-old white male admitted last night from assisted living facility because of left hand pain and swelling for two days. The patient states that he punched a wall with the left hand. He has some abrasions between third and fourth knuckle with slight bleeding. Over the past two days, the patient developed swelling of the hand, but there was no loss of function. PAST MEDICAL HISTORY: Significant for COPD, hypertension, PTSD, and bunion. ALLERGIES: clonazepam, divalproex, erythromycin, haloperidol, penicillin, and risperidone. MEDICATIONS: Protonix, atorvastatin, Colace, sodium chloride, Depakote, diphenhydramine, folic acid, phenytoin, gabapentin, oxcarbazepine, vancomycin, got a dose of ceftriaxone in the ER, albuterol and ipratropium inhaler, and nitroglycerin. SOCIAL HISTORY: He is single, shelter resident. Smoking one cigarette daily, but was a heavy smoker before smoked 3-pack of cigarettes daily. He has history of heroin abuse, the last time was one year ago. Quit drinking 5 years ago. REVIEW OF SYSTEMS: As history of present illness, no fever. He has pain & swelling in the left hand, cannot wear shoes because of bunions. PHYSICAL EXAMINATION: VITAL SIGNS: Temperature 97.9, pulse 81, and blood pressure 118/72. GENERAL APPEARANCE: No acute distress, well developed. HEAD AND NECK: [place] conjunctivae. HEART: Normal rate. LUNGS: Clear. ABDOMEN: Soft, nontender. EXTREMITIES: Mild edema at the back of left hand. There is an ulceration of knuckles between third and fourth finger. There is no discharge from the wound. The patient had bilateral bunions. NEUROLOGIC: He is awake, alert, and oriented. LABORATORY AND DIAGNOSTIC DATA: WBC 9.1, hemoglobin 16.2, hematocrit 46.3, and platelets 388,000. Sodium 131, potassium 3.8, chloride 96, bicarbonate 26, BUN 13, creatinine 0.8. Glucose 83. Left hand x-ray shows fifth metacarpal fracture, soft tissue swelling of the left hand. IMPRESSION: Left hand cellulitis and trauma. The patient has COPD, hypertension, psychiatric problem likely PTSD, and has bunions of both feet. RECOMMENDATION: Continue IV vancomycin. At the time of discharge, we will give the patient oral antibiotics likely doxycycline. At the end of my exam, I thank Dr. Gómez for involving me in the care of this patient. Alonzo Matta M.D. DR: Siva JOB#: [id number] CC: MARY
[2019-06-19 16:00] VITALS: BP 133/80
--- NOTE | 2019-06-19 17:17 | Infectious Diseases Prog Note ---
Assessment/Plan Assessment/Plan IMPRESSION: Left hand cellulitis and trauma. COPD, hypertension, psychiatric problem likely PTSD, bunions of both feet. RECOMMENDATION: Continue IV vancomycin. At the time of discharge, we will give the patient oral antibiotics likely doxycycline. Subjective ROS Limited/Unobtainable: No Respiratory: Reports: no symptoms Gastrointestinal/Abdominal: Reports: no symptoms Genitourinary: Reports: other - driping Musculoskeletal: Reports: pain, other - of left hand dereased Allergies: Coded Allergies: Little (Verified Allergy, Unknown, 06/17/19) CLONAZEPAM (Verified Allergy, Unknown, 06/17/19) DIVALPROEX SODIUM (Verified Allergy, Unknown, 04/03/19) ERYTHROMYCIN BASE (Verified Allergy, Unknown, 06/17/19) FISH CONTAINING PRODUCTS (Verified Allergy, Unknown, 06/17/19) HALOPERIDOL (Verified Allergy, Unknown, 04/03/19) PEANUT (Verified Allergy, Unknown, 06/17/19) PENICILLINS (Verified Allergy, Unknown, 06/17/19) RISPERIDONE (Verified Allergy, Unknown, 06/17/19) Objective Vital Signs Last 24 Hour Vital Signs Date Time Temp Pulse Resp B/P (MAP) Pulse Ox O2 Delivery O2 Flow Rate FiO2 06/19/19 16:00 98.3 86 19 133/80 (97) 95 06/19/19 12:00 97.6 70 18 121/63 (82) 98 06/19/19 09:00 Room Air 06/19/19 08:00 97.9 62 19 127/67 (87) 97 06/19/19 04:00 97.1 84 19 147/84 (105) 97 06/19/19 00:00 97.0 75 19 139/90 (106) 97 06/18/19 21:00 Room Air 06/18/19 20:00 96.3 72 19 145/91 (109) 95 Height (Feet): 5 Height (Inches): 7.00 Weight (Pounds): 168 General Appearance: no acute distress HEENT: mucous membranes moist Respiratory/Chest: lungs clear Cardiovascular: normal rate Abdomen: soft, non tender Extremities: other - mild left hand edema Skin: ulcers, other - left 4th knuckle Neurologic/Psychiatric: alert, responsive Microbiology Date/Time Source Procedure Growth Status 06/17/19 18:45 Blood Blood Culture - Preliminary NO GROWTH AFTER 24 HOURS Resulted 06/17/19 18:45 Blood Blood Culture - Preliminary NO GROWTH AFTER 24 HOURS Resulted 06/18/19 00:00 Rectum Received Laboratory Tests Test 06/19/19 07:10 White Blood Count 9.2 K/UL (4.8-10.8) Red Blood Count 5.00 M/UL (4.70-6.10) Hemoglobin 15.9 G/DL (14.2-18.0) Hematocrit 45.1 % (42.0-52.0) Mean Corpuscular Volume 90 FL (80-99) Mean Corpuscular Hemoglobin 31.8 PG (27.0-31.0) H Mean Corpuscular Hemoglobin Concent 35.3 G/DL (32.0-36.0) Red Cell Distribution Width 10.9 % (11.6-14.8) L Platelet Count 339 K/UL (150-450) Mean Platelet Volume 4.6 FL (6.5-10.1) L Neutrophils (%) (Auto) 73.7 % (45.0-75.0) Lymphocytes (%) (Auto) 14.8 % (20.0-45.0) L Monocytes (%) (Auto) 5.6 % (1.0-10.0) Eosinophils (%) (Auto) 5.1 % (0.0-3.0) H Basophils (%) (Auto) 0.8 % (0.0-2.0) Sodium Level 137 MMOL/L (136-145) Potassium Level 4.6 MMOL/L (3.5-5.1) Chloride Level 101 MMOL/L (98-107) Carbon Dioxide Level 26 MMOL/L (21-32) Anion Gap 10 mmol/L (5-15) Blood Urea Nitrogen 15 mg/dL (7-18) Creatinine 0.8 MG/DL (0.55-1.30) Estimat Glomerular Filtration Rate > 60 mL/min (>60) Glucose Level 88 MG/DL (74-106) Hemoglobin A1c 5.4 % (4.3-6.0) Osmolality 285 mOsm/kg (297-317) L Uric Acid 3.7 MG/DL (2.6-7.2) Calcium Level 9.0 MG/DL (8.5-10.1) Phosphorus Level 4.1 MG/DL (2.5-4.9) Magnesium Level 2.1 MG/DL (1.8-2.4) Total Bilirubin 0.3 MG/DL (0.2-1.0) Gamma Glutamyl Transpeptidase 42 U/L (5-85) Aspartate Amino Transf (AST/SGOT) 15 U/L (15-37) Alanine Aminotransferase (ALT/SGPT) 31 U/L (12-78) Alkaline Phosphatase 95 U/L (46-116) C-Reactive Protein, Quantitative 2.4 mg/dL (0.00-0.90) H Pro-B-Type Natriuretic Peptide 99 pg/mL (0-125) Total Protein 7.0 G/DL (6.4-8.2) Albumin 3.2 G/DL (3.4-5.0) L Globulin 3.8 g/dL Albumin/Globulin Ratio 0.8 (1.0-2.7) L Phenytoin (Dilantin) Level 4.4 ug/mL (10-20) L Current Medications Medications (Trade) Dose Ordered Sig/Scott Route PRN Reason Start Time Stop Time Status Last Admin Dose Admin Acetaminophen (Tylenol) 650 mg Q4H PRN ORAL Mild Pain/Temp > 100.5 06/18/19 10:00 07/18/19 09:59 06/18/19 20:31 Albuterol/ Ipratropium (Albuterol/ Ipratropium) 3 ml Q4HR PRN HHN Shortness of Breath 06/17/19 23:45 06/22/19 23:44 Atorvastatin Calcium (Lipitor) 10 mg BEDTIME ORAL 06/18/19 21:00 07/18/19 20:59 06/18/19 20:30 Cetylpyridinium Chloride (Cepacol) 1 lozg Q2H PRN HAILEY throat pain 06/18/19 10:00 07/18/19 09:59 06/19/19 05:28 Diphenhydramine HCl (Benadryl) 25 mg Q4H PRN ORAL Itching 06/18/19 09:45 07/18/19 09:44 06/18/19 20:31 Docusate Sodium (Colace) 100 mg THREE TIMES A DAY ORAL 06/18/19 13:00 07/18/19 12:59 06/19/19 12:14 Folic Acid (Folate) 1 mg DAILY ORAL 06/18/19 09:00 07/18/19 08:59 06/19/19 09:13 Gabapentin (Neurontin) 600 mg THREE TIMES A DAY ORAL 06/19/19 09:00 07/19/19 08:59 06/19/19 12:14 Lorazepam (Ativan) 2 mg Q6H PRN ORAL For Anxiety 06/19/19 00:00 06/26/19 00:00 06/19/19 09:13 Magnesium Hydroxide (Mom) 30 ml Q4H PRN ORAL Constipation 06/18/19 07:30 07/18/19 07:29 06/18/19 08:25 Nitroglycerin (Ntg) 0.4 mg Q5MIN X 3 DOSES PRN SL CHEST PAIN 06/17/19 23:45 07/17/19 23:44 Oxcarbazepine (Trileptal) 300 mg BID ORAL 06/18/19 09:00 07/18/19 08:59 06/19/19 09:12 Pantoprazole (Protonix) 40 mg EVERY 12 HOURS ORAL 06/18/19 21:00 07/18/19 20:59 06/19/19 09:13 Phenytoin (Dilantin) 200 mg TWICE A DAY ORAL 06/18/19 09:00 07/18/19 08:59 06/19/19 09:12 Sodium Chloride 1,000 ml @ 75 mls/hr [id number] IV 06/18/19 12:00 07/18/19 11:59 06/19/19 05:29 Vancomycin HCl (Vanco rx to dose) 1 ea DAILY PRN MISC Per rx protocol 06/18/19 07:00 07/18/19 06:59 Vancomycin HCl 1 gm/Dextrose 275 ml @ 183.708 mls/hr Q12HR IVPB 06/18/19 09:00 06/23/19 08:59 06/19/19 09:13 Alonzo Matta MD Jun 19, 2019 17:17
--- NOTE | 2019-06-19 17:36 | Cardiac Electrophysiology PN ---
Subjective Subjective [id number] Objective Last 24 Hour Vital Signs Date Time Temp Pulse Resp B/P (MAP) Pulse Ox O2 Delivery O2 Flow Rate FiO2 06/19/19 16:00 98.3 86 19 133/80 (97) 95 06/19/19 12:00 97.6 70 18 121/63 (82) 98 06/19/19 09:00 Room Air 06/19/19 08:00 97.9 62 19 127/67 (87) 97 06/19/19 04:00 97.1 84 19 147/84 (105) 97 06/19/19 00:00 97.0 75 19 139/90 (106) 97 06/18/19 21:00 Room Air 06/18/19 20:00 96.3 72 19 145/91 (109) 95 Intake and Output 06/18/19 06/19/19 19:00 07:00 Intake Total 875 ml 2795.000 ml Output Total 1200 ml Balance 875 ml 1595.000 ml Intake Oral 800 ml IV Total 75 ml 1995.000 ml Other 800 ml Output Urine Total 1200 ml Laboratory Tests Test 06/19/19 07:10 White Blood Count 9.2 K/UL (4.8-10.8) Red Blood Count 5.00 M/UL (4.70-6.10) Hemoglobin 15.9 G/DL (14.2-18.0) Hematocrit 45.1 % (42.0-52.0) Mean Corpuscular Volume 90 FL (80-99) Mean Corpuscular Hemoglobin 31.8 PG (27.0-31.0) H Mean Corpuscular Hemoglobin Concent 35.3 G/DL (32.0-36.0) Red Cell Distribution Width 10.9 % (11.6-14.8) L Platelet Count 339 K/UL (150-450) Mean Platelet Volume 4.6 FL (6.5-10.1) L Neutrophils (%) (Auto) 73.7 % (45.0-75.0) Lymphocytes (%) (Auto) 14.8 % (20.0-45.0) L Monocytes (%) (Auto) 5.6 % (1.0-10.0) Eosinophils (%) (Auto) 5.1 % (0.0-3.0) H Basophils (%) (Auto) 0.8 % (0.0-2.0) Sodium Level 137 MMOL/L (136-145) Potassium Level 4.6 MMOL/L (3.5-5.1) Chloride Level 101 MMOL/L (98-107) Carbon Dioxide Level 26 MMOL/L (21-32) Anion Gap 10 mmol/L (5-15) Blood Urea Nitrogen 15 mg/dL (7-18) Creatinine 0.8 MG/DL (0.55-1.30) Estimat Glomerular Filtration Rate > 60 mL/min (>60) Glucose Level 88 MG/DL (74-106) Hemoglobin A1c 5.4 % (4.3-6.0) Osmolality 285 mOsm/kg (297-317) L Uric Acid 3.7 MG/DL (2.6-7.2) Calcium Level 9.0 MG/DL (8.5-10.1) Phosphorus Level 4.1 MG/DL (2.5-4.9) Magnesium Level 2.1 MG/DL (1.8-2.4) Total Bilirubin 0.3 MG/DL (0.2-1.0) Gamma Glutamyl Transpeptidase 42 U/L (5-85) Aspartate Amino Transf (AST/SGOT) 15 U/L (15-37) Alanine Aminotransferase (ALT/SGPT) 31 U/L (12-78) Alkaline Phosphatase 95 U/L (46-116) C-Reactive Protein, Quantitative 2.4 mg/dL (0.00-0.90) H Pro-B-Type Natriuretic Peptide 99 pg/mL (0-125) Total Protein 7.0 G/DL (6.4-8.2) Albumin 3.2 G/DL (3.4-5.0) L Globulin 3.8 g/dL Albumin/Globulin Ratio 0.8 (1.0-2.7) L Phenytoin (Dilantin) Level 4.4 ug/mL (10-20) L Microbiology Date/Time Source Procedure Growth Status 06/17/19 18:45 Blood Blood Culture - Preliminary NO GROWTH AFTER 24 HOURS Resulted 06/17/19 18:45 Blood Blood Culture - Preliminary NO GROWTH AFTER 24 HOURS Resulted 06/18/19 00:00 Rectum Received Pelon Danielle MD Jun 19, 2019 17:36
--- NOTE | 2019-06-19 19:38 | NUR ---
HAND-OFF: Report given to VILMA Lynn.
--- NOTE | 2019-06-19 19:44 | NUR ---
NURSE NOTES: Received report from VILMA Leon. Patient awake and verbally responsive to make his needs known. Breathing unlabored without distress, discomfort, or sob on room air. IV noted on the right wrist intact and patent. Scar on left hand noted, open to air. Bed placed at the lowest with alarm, brake, and siderails up for safety. Call light placed within reach. Will continue to monitor and provide care as ordered. Laboratory came to collect vanco trough scheduled for 1999. Will follow up for result for 2100 dose scheduled.
[2019-06-19 20:00] VITALS: BP 111/68
--- NOTE | 2019-06-19 20:45 | NUR ---
NURSE NOTES: Spoken with pharmacist Mauri. Confirmed okay to continue the same dose of vanco scheduled for 2099. Vanco trough result 13.8 (H).
--- NOTE | 2019-06-19 20:56 | General Progress Note ---
Assessment/Plan Problem List: (1) Cellulitis ICD Codes: L03.90 - Cellulitis, unspecified SNOMED: 976015171 Status: progressing Assessment/Plan: celluitis is improving afebrile abx per id Subjective ROS Limited/Unobtainable: Yes Allergies: Coded Allergies: Little (Verified Allergy, Unknown, 06/17/19) CLONAZEPAM (Verified Allergy, Unknown, 06/17/19) DIVALPROEX SODIUM (Verified Allergy, Unknown, 04/03/19) ERYTHROMYCIN BASE (Verified Allergy, Unknown, 06/17/19) FISH CONTAINING PRODUCTS (Verified Allergy, Unknown, 06/17/19) HALOPERIDOL (Verified Allergy, Unknown, 04/03/19) PEANUT (Verified Allergy, Unknown, 06/17/19) PENICILLINS (Verified Allergy, Unknown, 06/17/19) RISPERIDONE (Verified Allergy, Unknown, 06/17/19) Objective Last 24 Hour Vital Signs Date Time Temp Pulse Resp B/P (MAP) Pulse Ox O2 Delivery O2 Flow Rate FiO2 06/19/19 19:25 78 18 97 Room Air 21 06/19/19 16:00 98.3 86 19 133/80 (97) 95 06/19/19 12:00 97.6 70 18 121/63 (82) 98 06/19/19 09:00 Room Air 06/19/19 08:00 97.9 62 19 127/67 (87) 97 06/19/19 04:00 97.1 84 19 147/84 (105) 97 06/19/19 00:00 97.0 75 19 139/90 (106) 97 06/18/19 21:00 Room Air Intake and Output 06/18/19 06/19/19 19:00 07:00 Intake Total 875 ml 2795.000 ml Output Total 1200 ml Balance 875 ml 1595.000 ml Intake Oral 800 ml IV Total 75 ml 1995.000 ml Other 800 ml Output Urine Total 1200 ml Laboratory Tests 06/19/19 07:10: White Blood Count 9.2, Red Blood Count 5.00, Hemoglobin 15.9, Hematocrit 45.1, Mean Corpuscular Volume 90, Mean Corpuscular Hemoglobin 31.8H, Mean Corpuscular Hemoglobin Concent 35.3, Red Cell Distribution Width 10.9L, Platelet Count 339, Mean Platelet Volume 4.6L, Neutrophils (%) (Auto) 73.7, Lymphocytes (%) (Auto) 14.8L, Monocytes (%) (Auto) 5.6, Eosinophils (%) (Auto) 5.1H, Basophils (%) ( Auto) 0.8, Sodium Level 137, Potassium Level 4.6, Chloride Level 101, Carbon Dioxide Level 26, Anion Gap 10, Blood Urea Nitrogen 15, Creatinine 0.8, Estimat Glomerular Filtration Rate > 60, Glucose Level 88, Hemoglobin A1c 5.4, Osmolality 285L, Uric Acid 3.7, Calcium Level 9.0, Phosphorus Level 4.1, Magnesium Level 2.1, Total Bilirubin 0.3, Gamma Glutamyl Transpeptidase 42, Aspartate Amino Transf (AST/SGOT) 15, Alanine Aminotransferase (ALT/SGPT) 31, Alkaline Phosphatase 95, C-Reactive Protein, Quantitative 2.4H, Pro-B-Type Natriuretic Peptide 99, Total Protein 7.0, Albumin 3.2L, Globulin 3.8, Albumin/ Globulin Ratio 0.8L, Phenytoin (Dilantin) Level 4.4L 06/19/19 19:45: Vancomycin Level Trough 13.8H Height (Feet): 5 Height (Inches): 7.00 Weight (Pounds): 168 Cardiovascular: normal rate Respiratory/Chest: lungs clear Abdomen: soft Darshan Gómez MD Jun 19, 2019 20:56
[2019-06-20] VITALS: BP 119/68
[2019-06-20] MEDS: Nitroglycerin Subl 0.4mg tab SL PRN ×3 (00:16→00:28)
--- NOTE | 2019-06-20 00:16 | NUR ---
NURSE NOTES: Patient expressed chest pain 8/10. V/S: 146/75 HR76 O2SAT 94% on room air RR20. Given 1/3 nitroglycerin (0.4 per dose) PRN for chest pain. Will continue to monitor.
[2019-06-20] MEDS: LORazepam 0.5mg tab ORAL PRN ×2 (00:18→08:41)
--- NOTE | 2019-06-20 00:23 | NUR ---
NURSE NOTES: Patient verbalized chest pain 03/03. Administered 2/3 nitroglycerin (0.4mg per dose). VS: 123/73 HR 82 O2SAT 95% on room air. Will continue to monitor.
--- NOTE | 2019-06-20 00:28 | NUR ---
NURSE NOTES: Patient verbalized chest pain 5/10. Administered 3/3 nitroglycerin (0.4mg per dose). VS: 126/61 HR 86 O2SAT 94% on room air. Will continue to monitor.
--- NOTE | 2019-06-20 00:45 | NUR ---
NURSE NOTES: Rechecked patient's VS: 112/81 HR 87 O2SAT 95% on room air. Patient verbalized chest pain that "comes and goes". Will continue to monitor.
--- NOTE | 2019-06-20 00:51 | NUR ---
NURSE NOTES: Patient continues to verbalize chest pain 6/10 after three doses of nitroglycerin. Reached Dr. aDnielle to inform about the situation and to confirm on new orders to follow up. Was not able to reach Dr. Danielle at this time. Left a message for call back. Will continue to monitor the patient.
--- NOTE | 2019-06-20 01:10 | NUR ---
NURSE NOTES: Awaiting for Dr. Danielle's call back. Patient currently asleep. No apparent distress noted. O2SAT 95% on room air. V/S stable. Will continue to monitor and provide care as ordered. Charge nurse made aware of patient's condition.
[2019-06-20 04:00] VITALS: BP 121/75
--- NOTE | 2019-06-20 04:15 | Consultation ---
DATE OF CONSULTATION: 06/19/2019 CARDIOLOGY CONSULTATION CONSULTING PHYSICIAN: Pelon Danielle M.D. REFERRING PHYSICIAN: Darshan Gómez M.D. REASON FOR CONSULTATION: Management of hypertension and questionable heart attack. HISTORY OF PRESENT ILLNESS: The patient is a 58-year-old gentleman with a history of hypertension and COPD and posttraumatic stress disorder who states that he has had 21 heart attacks in the past. The patient, however, denies any angiogram or stent placement or coronary artery bypass graft. The patient states that he punched a wall out of anger two days ago and he is right-handed and noticed abrasion between his third and fourth knuckles, started bleeding quickly. Over the next couple of days, he reports swelling progressively got worse. The patient was admitted with cellulitis of the hand and management of his hypertension as well. REVIEW OF SYSTEMS: Review of systems was negative other than what was mentioned in the history of present illness. PAST MEDICAL HISTORY: As mentioned above. FAMILY HISTORY: Noncontributory. SOCIAL HISTORY: He is a smoker. Does not drink alcohol or use drugs. MEDICATIONS: Per reconciliation. PHYSICAL EXAMINATION: VITAL SIGNS: Show blood pressure of 132/80, pulse 86, respirations 19, and temperature 98.3. HEAD AND NECK: Showed no JVD or carotid bruits. LUNGS: Clear. CARDIOVASCULAR: Shows regular S1 and S2 with no gallop or murmur. ABDOMEN: Soft. EXTREMITIES: No pitting edema and cellulitis of the hand. LABORATORY AND DIAGNOSTIC DATA: His EKG showed normal sinus rhythm, normal electrocardiogram. Labs show a white count of 9.2, hemoglobin of 16, hematocrit of 45, and platelet count is 339. Sodium is 137, potassium 4.6, BUN of 15, creatinine of 0.8. ASSESSMENT AND PLAN: 1. Hypertension. The patient is off any antihypertensive agents at this time. Blood pressure was as high as 147/90. Start the patient on low-dose lisinopril. 2. Questionable heart attacks. The patient states that he had 21 heart attacks. It is quite unlikely that EKG is completely normal. We will get an echocardiogram for further evaluation. The patient currently does not have any chest pain. 3. Hand cellulitis. 4. COPD. 5. Hyperlipidemia, on Lipitor. 6. History of seizures. 7. PTSD, on Neurontin. Thank you very much, Dr. Gómez, for allowing me to participate in the care of this patient. Please do not hesitate to contact if you have any questions regarding my evaluation. Sincerely, Pelon Danielle M.D. DR: ANNA JOB#: [id number] CC:
--- NOTE | 2019-06-20 07:42 | NUR ---
NURSE NOTES: Patient awake, alert x4; on room air, no sing of distress and shortness of breath; currently patient doesn't complain of chest pain; IV Right Wrist 22G NS 75cc running; side rails padded for seizure percussion, bed at lowest position, breaks engaged; call light within reach; will keep monitoring.
--- NOTE | 2019-06-20 07:44 | NUR ---
HAND-OFF: Report given to VILMA Leon.
[2019-06-20 08:00] VITALS: BP 127/76
[2019-06-20] MEDS: OXcarbazepine 150mg tab ORAL SCH (08:38)
[2019-06-20] MEDS: Docusate 100mg cap ORAL SCH ×2 (08:38→12:47)
[2019-06-20] MEDS: Phenytoin 100mg cap ORAL SCH (08:38)
[2019-06-20] MEDS: Vancomycin 1gm in D5W 275ml IVPB SCH (08:39)
--- NOTE | 2019-06-20 08:40 | Cardiac Electrophysiology PN ---
Assessment/Plan Assessment/Plan 1. Hypertension. Better on lisinopril 10 daily 2. Chest pain and questionable heart attacks. The patient states that he had 21 heart attacks. It is quite unlikely that EKG is completely normal. We will get an echocardiogram for further evaluation. Complete R/O NM protocol and transfer to tele. 3. Hand cellulitis. 4. COPD. 5. Hyperlipidemia, on Lipitor. 6. History of seizures. 7. PTSD, on Neurontin. MONA RN Subjective Subjective Complaining of chest pain. No SOB. Asking for Ativan. RN at bedside Objective Last 24 Hour Vital Signs Date Time Temp Pulse Resp B/P (MAP) Pulse Ox O2 Delivery O2 Flow Rate FiO2 06/20/19 08:00 98.5 69 17 127/76 (93) 97 06/20/19 04:00 97.2 69 16 121/75 (90) 96 06/20/19 00:28 126/61 06/20/19 00:23 123/73 06/20/19 00:16 146/75 06/20/19 00:00 97.7 69 18 119/68 (85) 97 06/19/19 21:00 Room Air 06/19/19 20:00 98.1 78 18 111/68 (82) 96 06/19/19 19:25 78 18 97 Room Air 21 06/19/19 16:00 98.3 86 19 133/80 (97) 95 06/19/19 12:00 97.6 70 18 121/63 (82) 98 06/19/19 09:00 Room Air Intake and Output 06/19/19 06/20/19 19:00 07:00 Intake Total 2912.416 ml 2600.000 ml Output Total 1900 ml Balance 2912.416 ml 700.000 ml Intake Oral 1800 ml IV Total 1712.416 ml 800.000 ml Other 1200 ml Output Urine Total 1900 ml Laboratory Tests Test 06/19/19 19:45 Vancomycin Level Trough 13.8 ug/mL (5.0-12.0) H Microbiology Date/Time Source Procedure Growth Status 06/17/19 18:45 Blood Blood Culture - Preliminary NO GROWTH AFTER 48 HOURS Resulted 06/17/19 18:45 Blood Blood Culture - Preliminary NO GROWTH AFTER 48 HOURS Resulted 06/18/19 00:00 Nasal Nares MRSA Culture - Final NO METHICILLIN RESISTANT STAPH AUREUS... Complete 06/18/19 00:00 Rectum Received Objective HEAD AND NECK: No JVD or carotid bruits. LUNGS: Clear. CARDIOVASCULAR: Shows regular S1 and S2 with no gallop or murmur. ABDOMEN: Soft. EXTREMITIES: No pitting edema and cellulitis of the hand. Pelon Danielle MD Jun 20, 2019 08:40
[2019-06-20] MEDS ORDERED: Lisinopril 10mg tab ORAL SCH (09:00)
--- NOTE | 2019-06-20 10:45 | NUR ---
NURSE NOTES: Patient's EKG level is Normal Sinus Rhythm; Troponin level 0.005; MD Danielle and charge nurse Jose aware for the results;
--- NOTE | 2019-06-20 11:19 | General Progress Note ---
Assessment/Plan Assessment/Plan: (1) Left hand pain (2) Cellulitis (3) H/O Substance abuse (4) Arthritis Patient to be continued on Tylenol D/w Dr. Morales and he concurred. Subjective Date patient seen: Jun 20, 2019 Time patient seen: 10:45 - am Allergies: Coded Allergies: Little (Verified Allergy, Unknown, 06/17/19) CLONAZEPAM (Verified Allergy, Unknown, 06/17/19) DIVALPROEX SODIUM (Verified Allergy, Unknown, 04/03/19) ERYTHROMYCIN BASE (Verified Allergy, Unknown, 06/17/19) FISH CONTAINING PRODUCTS (Verified Allergy, Unknown, 06/17/19) HALOPERIDOL (Verified Allergy, Unknown, 04/03/19) PEANUT (Verified Allergy, Unknown, 06/17/19) PENICILLINS (Verified Allergy, Unknown, 06/17/19) RISPERIDONE (Verified Allergy, Unknown, 06/17/19) Subjective REVIEW OF SYSTEMS: Denies rash, fever, chills, sweating, dizziness, drowsiness, blurred vision, sore throat, or change in weight. No shortness of breath or chest pain. No nausea, vomiting, diarrhea. No blood in stool or urine. No bowel or bladder incontinence. No dysuria. SUBJECTIVE: Patient is in bed and denies pain at this time. He is comfortable and uses the Tylenol as needed. No new complaints. Objective Last 24 Hour Vital Signs Date Time Temp Pulse Resp B/P (MAP) Pulse Ox O2 Delivery O2 Flow Rate FiO2 06/20/19 09:00 Room Air 06/20/19 08:39 127/76 06/20/19 08:00 98.5 69 17 127/76 (93) 97 06/20/19 04:00 97.2 69 16 121/75 (90) 96 06/20/19 00:28 126/61 06/20/19 00:23 123/73 06/20/19 00:16 146/75 06/20/19 00:00 97.7 69 18 119/68 (85) 97 06/19/19 21:00 Room Air 06/19/19 20:00 98.1 78 18 111/68 (82) 96 06/19/19 19:25 78 18 97 Room Air 21 06/19/19 16:00 98.3 86 19 133/80 (97) 95 06/19/19 12:00 97.6 70 18 121/63 (82) 98 Intake and Output 06/19/19 06/20/19 19:00 07:00 Intake Total 2912.416 ml 2600.000 ml Output Total 1900 ml Balance 2912.416 ml 700.000 ml Intake Oral 1800 ml IV Total 1712.416 ml 800.000 ml Other 1200 ml Output Urine Total 1900 ml Laboratory Tests 06/19/19 19:45: Vancomycin Level Trough 13.8H 06/20/19 08:41: Troponin I 0.005 06/20/19 10:56: Troponin I [Pending] Height (Feet): 5 Height (Inches): 7.00 Weight (Pounds): 168 Objective GENERAL: Alert, awake, oriented. LUNGS: Clear bilaterally. HEART: S1 and S2 regular. ABDOMEN: Soft and nontender. EXTREMITIES: No clubbing. No edema. NEURO: No changes. Nickolas Weston Jun 20, 2019 11:19
[2019-06-20 12:00] VITALS: BP 126/79
--- NOTE | 2019-06-20 12:48 | General Progress Note ---
Assessment/Plan Problem List: (1) Cellulitis ICD Codes: L03.90 - Cellulitis, unspecified SNOMED: 923655509 Status: progressing Assessment/Plan: celluitis is improving afebrile vitals stable Subjective ROS Limited/Unobtainable: Yes Allergies: Coded Allergies: Little (Verified Allergy, Unknown, 06/17/19) CLONAZEPAM (Verified Allergy, Unknown, 06/17/19) DIVALPROEX SODIUM (Verified Allergy, Unknown, 04/03/19) ERYTHROMYCIN BASE (Verified Allergy, Unknown, 06/17/19) FISH CONTAINING PRODUCTS (Verified Allergy, Unknown, 06/17/19) HALOPERIDOL (Verified Allergy, Unknown, 04/03/19) PEANUT (Verified Allergy, Unknown, 06/17/19) PENICILLINS (Verified Allergy, Unknown, 06/17/19) RISPERIDONE (Verified Allergy, Unknown, 06/17/19) Objective Last 24 Hour Vital Signs Date Time Temp Pulse Resp B/P (MAP) Pulse Ox O2 Delivery O2 Flow Rate FiO2 06/20/19 09:00 Room Air 06/20/19 08:39 127/76 06/20/19 08:00 98.5 69 17 127/76 (93) 97 06/20/19 04:00 97.2 69 16 121/75 (90) 96 06/20/19 00:28 126/61 06/20/19 00:23 123/73 06/20/19 00:16 146/75 06/20/19 00:00 97.7 69 18 119/68 (85) 97 06/19/19 21:00 Room Air 06/19/19 20:00 98.1 78 18 111/68 (82) 96 06/19/19 19:25 78 18 97 Room Air 21 06/19/19 16:00 98.3 86 19 133/80 (97) 95 Intake and Output 06/19/19 06/20/19 19:00 07:00 Intake Total 2912.416 ml 2600.000 ml Output Total 1900 ml Balance 2912.416 ml 700.000 ml Intake Oral 1800 ml IV Total 1712.416 ml 800.000 ml Other 1200 ml Output Urine Total 1900 ml Laboratory Tests 06/19/19 19:45: Vancomycin Level Trough 13.8H 06/20/19 08:41: Troponin I 0.005 10/27/19 10:56: Troponin I 0.000 Height (Feet): 5 Height (Inches): 7.00 Weight (Pounds): 168 EENT: PERRL/EOMI Cardiovascular: normal rate Respiratory/Chest: lungs clear Abdomen: soft Darshan Gómez MD Jun 20, 2019 12:48
--- NOTE | 2019-06-20 14:01 | NUR ---
NURSE NOTES: Patient in bed, complaining chest pain, V/S stable. Breathing is even and unlabored. RN checked Dr. Danielle's note and it says transfer to tele. Rn checked with Dr. Danielle and he said to transfer patient to tele. supervisor stave cutting is aware.
--- NOTE | 2019-06-20 15:38 | NUR ---
NURSE NOTES: Patient transfered to Tele [id number]; Report given to VILMA Lynn; patient was stable upon transfer; belonging list signed by transferring and receiving nurses;
--- NOTE | 2019-06-20 15:40 | NUR ---
NURSE NOTES: Received report from Luis RN from . Patient transferred from [facility] via bed. No c/o pain or distress noted. IV site intact and asymptomatic. Bed in lowest position and locked. telemetry monitor applied. No acute distress noted. Call light within easy reach. Inventory list reviewed. Vital signs are in normal range. Will continue to plan of care.
[2019-06-20 15:51] VITALS: BP 123/68
[2019-06-20] MEDS ORDERED: Nitroglycerin Subl 0.4mg tab SL PRN (16:30)
[2019-06-20] MEDS ORDERED: Albuterol/Ipratropium 3ml neb HHN PRN (17:00)
[2019-06-20] MEDS ORDERED: LORazepam 1mg tab ORAL PRN (17:00)
[2019-06-20] MEDS ORDERED: Milk of Magnesia 30ml Ud ORAL PRN (17:00)
--- NOTE | 2019-06-20 17:30 | NUR ---
NURSE NOTES: Dr. Danielle paged for any new orders for the patient. Per Dr. Danielle no plan for stress test tomorrow for the patient.
[2019-06-20] MEDS ORDERED: Docusate 100mg cap ORAL SCH (18:00)
[2019-06-20] MEDS ORDERED: Phenytoin 100mg cap ORAL SCH (18:00)
--- NOTE | 2019-06-20 19:10 | NUR ---
HAND-OFF: Report given to Jimenez ESPARZA. Pt remains stable.
--- NOTE | 2019-06-20 19:10 | NUR ---
NURSE NOTES: Received report from VILMA Dent. Patient is awake and responsive. Breathing regular with no distress noted at this time. Bed is in lowest position, breaks engaged, call light is within easy reach. Patient's IV is intact, running fluids at prescribed rate. Patient denies pain at this time. Will continue to monitor.
[2019-06-20 20:00] VITALS: BP 123/66
[2019-06-20] MEDS ORDERED: OXcarbazepine 150mg tab ORAL SCH (21:00)
[2019-06-20] MEDS ORDERED: Vancomycin 1 GM in D5W 275 ML IVPB SCH (21:00)
[2019-06-21] VITALS: BP 111/69
[2019-06-21 04:00] VITALS: BP 111/59
--- NOTE | 2019-06-21 04:23 | NUR ---
NURSE NOTES: Called Dr. Gómez regarding patient attempting to leave AMA. Awaiting callback.
--- NOTE | 2019-06-21 04:44 | NUR ---
AMA: Patient noted to have removed his property assessment monitor, gown, and dressing up in his clothes. Attempted to convince the patient to stay repeatedly along with the charge nurse, but patient still refused to listen stating, "you can't restrain me or hold me here. If the hospital won't let me sign AMA, then I don't want to be here." Patient AOx3-4. Security was called to assist with the situation. Patient still adamantly refused to stay and signed AMA paper. Patient taken off Tele box and d/c'ed from IV site; tolerated well. Notified Dr. Gómez of the situation. Addendum: 06/21/19 at 0450 by LEN CANALES RN RN Patient also refuses to have any information about him disclosed to family members.
--- NOTE | 2019-06-21 06:10 | NUR ---
NURSE NOTES: Called Dr. Gómez again to inform him that patient signed out AMA. No response as of yet. Lyly Aguilar, nursing stave cutting supervisor, made aware. Awaiting callback for any further orders.
--- NOTE | 2019-06-21 07:48 | NUR ---
NURSE NOTES: Received call from [facility] that patient safely arrived at the facility.
[2019-06-21] MEDS ORDERED: Lisinopril 10mg tab ORAL SCH (09:00)
--- NOTE | 2019-06-22 11:22 | Discharge Summary ---
Discharge Summary Discharge Summary _ DATE OF ADMISSION: 06/17/2019 DATE OF DISCHARGE: 06/21/2019 Patient left AGAINST MEDICAL ADVICE REASON FOR ADMISSION: 58 years old male with past medical history of hypertension, COPD, PTSD, presented from assisted living for evaluation of left hand pain and swelling. Patient reported punching a wall out of anger 2 days ago. Patient was a right-handed dominant , but punched a wall with his left hand. Patient noted abrasion between the third and fourth knuckles, which stopped bleeding quickly. Over the next 2 days, patient noted progressive swelling over the dorsum of the hand, but denied any restriction in range of motion of the digits. No numbness and tingling. No pain unless palpated. Upon evaluation vital signs were stable. Laboratory work-up revealed no leukocytosis , stable hemoglobin and hematocrit. Urinalysis was unremarkable. Stable electrolytes and renal parameters. Glucose 84. Stable LFT. X-ray of the left hand revealed fifth metacarpal fracture deformity , probably old. Dorsal soft tissue swelling. X-ray of the left wrist revealed no acute bony trauma . In emergency department patient was treated with empiric antibiotic and admitted to medical surgical floor for treatment of cellulitis. CONSULTANTS: blueprint reproducer Dr. Marcos ID specialist Dr. Ramon animator Dr. Velasquez buoy tender Dr. Ricci psychiatrist pain specialist Dr. Morales HOSPITAL COURSE: Patient admitted to medical surgical floor. Patient started on antibiotic as per ID specialist recommendation. Blood cultures were negative. ESR 32, CRP 2.4. No fever, no leukocytosis. Pain management was addressed as per pain specialist recommendation. Patient was on IV vancomycin while in the hospital with plan to switch to oral doxycycline upon discharge. Blood pressure was managed with ERON inhibitor. Per patient, he had 21 heart attack, which was highly unlikely as per blueprint reproducer, given completely normal EKG. Serial troponin were negative. EKG revealed no acute ischemic changes. Patient was ruled out for acute myocardial infarction. Echocardiogram revealed preserved ejection fraction of 60 to 65% no evidence of wall motion abnormality. Right ventricular systolic pressure of 27. Statin was continued. GI prophylaxis provided. Bowel regimen instituted. Pulse oximetry was stable on room air. Bronchodilator therapy was on board as needed. No evidence of COPD exacerbation. Patient was counseled on smoking cessation. Patient declined nicotine patch. Closely monitor. Nephrotoxins were avoided. Seizure precaution maintained. Anticonvulsant continued. No evidence of seizure activity while in the hospital. Rheumatology Nurse seen and evaluated patient. Patient had bilateral bunion deformity. X-ray of the bilateral foot revealed no acute findings. Rheumatology Nurse discussed findings with the patient. No open wounds or acute infection noted . Patient was instructed that bunion pain can be treated as outpatient. No acute surgical intervention was required as per buoy tender. Psychiatrist followed. Per psychiatrist , patient had PTSD and anxiety disorder. Patient started on Neurontin. Anxiolytics was on board as needed. Patient, however , was reluctant to start new medication. On 06/21 patient decided to leave AGAINST MEDICAL ADVICE. The risks and consequences of signing AGAINST MEDICAL ADVICE were discussed with patient in detail. Patient verbalized understanding, nevertheless declined to sign AMA form and left. Assisted living was contacted later. Patient safely arrived to assisted living. FINAL DIAGNOSES: Left hand cellulitis secondary to trauma Bilateral feet bunions deformity COPD Hypertension Hyperlipidemia Seizure disorder Left hand pain History of substance abuse Arthritis PTSD Anxiety disorder I have been assigned to dictate discharge summary for this account. I was not involved in the patient's management. Ana Felix NP Jun 22, 2019 11:22
--- NOTE | 2019-06-22 16:05 | Cardiology Report ---
APPROVED REPORT EXAM: Two-dimensional and M-mode echocardiogram with Doppler and color Doppler. INDICATION Coronary artery disease M-Mode DIMENSIONS IVSd1.1 (0.7-1.1cm)Left Atrium (MM)3.4 (1.6-4.0cm) LVDd3.5 (3.5-5.6cm)Aortic Root3.6 (2.0-3.7cm) PWd1.2 (0.7-1.1cm)Aortic Cusp Exc.1.7 (1.5-2.0cm) LVDs2.7 (2.5-4.0cm) PWs1.8 cm Normal left ventricular chamber size, systolic function and wall motion. Left ventricular ejection fraction estimated to be 50-55%. Mobile intra-atrial septum and lipomatous hypertrophy. Mild left ventricular hypertrophy. Anterior Echo-free space, may be due to pericardial fat or effusion. All other cardiac chamber sizes are within normal limits. Aortic valve calcification with decreased cusp excursion c/w aortic stenosis. Mildly thickened mitral valve leaflets with normal excursion. Mild mitral annulus and aortic root calcification. Pulmonic valve not well visualized. Normal tricuspid valve structure. IVC is normal in size with physiological collapse. A color flow and spectral Doppler study was performed and revealed: Mild aortic regurgitation. Peak aortic valve gradient of 19 mmHg and a mean of 10 mmHg. Aortic valve area 1.3 cm2 calculated by continuity equation. Trace mitral regurgitation. Mitral inflow velocities indicates possible pseudo normalization pattern implying significant left ventricular diastolic dysfunction (Grade II). Trace tricuspid regurgitation. Tricuspid systolic velocities suggests peak right ventricular systolic pressure of 27 mmHg. No pulmonic regurgitation present.
--- NOTE | 2019-06-22 17:01 | Cardiology Report ---
APPROVED REPORT EKG Measurement Heart [id number] Normal sinus rhythm Normal ECG
== END 2019-06-21 04:33 | disposition left against medical advice (07) | DRG 603 ==
LOC: EDBD 18:21 → EMR 18:50 → 4E 20:36 → EDBEDREQ 20:49 → 2E 06-20 15:30
DX: L03.114 Cellulitis of left upper limb (principal); E87.1 Hypo-osmolality and hyponatremia; I10 Essential (primary) hypertension; J44.9 Chronic obstructive pulmonary disease, unspecified; F43.10 Post-traumatic stress disorder, unspecified; F41.8 Other specified anxiety disorders; E86.0 Dehydration; F20.9 Schizophrenia, unspecified; G40.909 Epilepsy, unspecified, not intractable, without status epilepticus; Z87.891 Personal history of nicotine dependence; F19.11 Other psychoactive substance abuse, in remission; F10.11 Alcohol abuse, in remission; K21.9 Gastro-esophageal reflux disease without esophagitis; Z88.1 Allergy status to other antibiotic agents; Z88.0 Allergy status to penicillin; Z88.8 Allergy status to other drugs, medicaments and biological substances; M21.612 Bunion of left foot; M21.611 Bunion of right foot; E78.5 Hyperlipidemia, unspecified; M79.642 Pain in left hand; M19.90 Unspecified osteoarthritis, unspecified site; F11.11 Opioid abuse, in remission; I34.1 Nonrheumatic mitral (valve) prolapse
CPT/HCPCS: 36415; 80053; 80061; 80185; 80202; 80307; 81003; 82977; 83036; 83735; 83880; 83930; 83935; 84100; 84300; 84443; 84484; 84550; 85025; 85651; 86140; 87040; 87081; 93005; 93306; 94664; 96365; 99285